=== PATIENT | male | born 1950 | race Caucasian/White ===

== ENCOUNTER 2023-05-08 08:08 | Outpatient (CLI) | payer MEDICARE, OTHER, SELFPAY ==
--- NOTE | 2023-05-08 08:30 | ECG_ITS ---
Measurements Intervals [place] Rate: 78 P: 31 MS: 172 QRS: 8 QRSD: 97 T: 35 QT: 366 QTc: 417 Interpretive Statements SINUS RHYTHM WITH SINUS ARRHYTHMIA BORDERLINE R WAVE PROGRESSION, ANTERIOR LEADS NONSPECIFIC T-WAVE ABNORMALITY- HIGH LATERAL LEADS BORDERLINE ECG NO PREVIOUS ECG AVAILABLE FOR COMPARISON Electronically Signed On 05-08-2023 8:48:59 TABLEAU REPORT DEVELOPER by Manav Tuttle D.O.
[2023-05-08 08:45] LABS: Hematocrit 45.4 % (42.0-52.0); Hemoglobin 15.2 g/dL (14.0-18.0); Mean Corpuscular HGB Conc 33.5 g/dl (32-36); Mean Corpuscular Hemoglobin 27.3 pg (26-34); Mean Corpuscular Volume 81.5 fl (80-100); Mean Platelet Volume 9.6 fl (7.4-10.4); Platelet Count Result 216 k/mm3 (150-375); Red Blood Count 5.57 M/mm3 (4.6-6.20); Red Cell Distribution Width 13.1 % (11.5-14.5); White Blood Count 8.8 K/mm3 (4.5-10.0)
[2023-05-08 08:46] LABS: Appearance Urine Clear (Clear); Bilirubin Urine Negative (Negative); Blood Urine Negative (Negative); Color Urine Yellow (Yellow); Glucose Urine UA Negative (Negative); Ketones Urine Negative (Negative); Leukocyte Esterase Ur Negative LEU/UL (Negative); Nitrate Urine Negative (Negative); Protein Urine Negative (Negative); Specific Grav Ur 1.009 (1.001-1.035); pH Urine 6.5 (5.0-9.0)
[2023-05-08 08:50] LABS: Add Urine Microscopic? NO
[2023-05-08 08:55] LABS: Anion Gap 14 mmol/L (8-16); Blood Urea Nitrogen 14 mg/dL (9-20); Calcium 9.9 mg/dL (8.4-10.2); Carbon Dioxide 27 mmol/L (22-30); Chloride 98 mmol/L (98-107); Estimated Glomerular Filt Rate > 60; Glucose 151 mg/dL (65-110); Potassium 3.8 mmol/L (3.4-5.0); Sodium 139 mmol/L (137-145)
[2023-05-08 08:56] LABS: INR 0.9
[2023-05-08 08:57] LABS: Partial Thromboplastin Time 25.1 SECONDS (22.3-36.8)
[2023-05-08 09:13] LABS: Hemoglobin A1C 5.9 % (<5.7)
== END 2023-05-08 08:09 | disposition home or self-care (01) ==
LOC: ANHSURGERY 08:15
PROVIDERS: PCP Physician Assistant; Visit Provider Neurological Surgery
DX: M48.062 Spinal stenosis, lumbar region with neurogenic claudication (principal); E11.9 Type 2 diabetes mellitus without complications; F17.210 Nicotine dependence, cigarettes, uncomplicated; Z01.818 Encounter for other preprocedural examination; R94.31 Abnormal electrocardiogram [ECG] [EKG]
CPT/HCPCS: 36415; 80048; 81003; 83036; 85027; 85610; 85730; 93005

== ENCOUNTER 2023-05-09 00:09 | Day surgery (SDC) | payer MEDICARE, OTHER, SELFPAY ==
[2023-05-04 15:05] VITALS: BMI 29.9
--- NOTE | 2023-05-04 15:06 | PC.NURSE ---
Report to the Outpatient Waiting Room, entrance under the green pavilion located off [facility], at time _0630_ on date _[id number]_. Planned Procedure Time: _0830_. Time changes happen often and if your time is changed the preop area will call you the afternoon before. - You and your visitor will be asked to self-screen and do not enter if you have any COVID symptoms. - A mask is optional within the hospital at this time. Patients may have clear liquids (water, carbonated beverages, clear teas, apple juice) until 3 hours prior to surgery with a maximum of 20 ounces. - No food from midnight until time of surgery Take the following medications with a SIP of water the morning of surgery: ____Amlodipine DO NOT STOP ANY OF YOUR OTHER PRESCRIPTION MEDICATIONS PRIOR TO SURGERY ?EXCEPT THE FOLLOWING Medications to discontinue per physician Please call Dr Johnson's office and ask about Aspirin and Meloxicam if need held prior to surgery. Date to take last dose Please no make-up, nail danish, hairspray, perfume, deodorant, or body powder the day of surgery. No jewelry (including any body piercings) or valuables the day of surgery, leave them at home. Please take a shower or bath the night before, or the morning of, surgery with an antibacterial soap. Wear comfortable, loose fitting clothing. - Jewelry must be removed prior to entering the operating room. Rings and piercings that are not removed may be cut off. - The hospital will not accept responsibility for valuables. - Please leave all valuables, including medications, at home the day of surgery. If you are going home after surgery, a licensed lifter/driver must drive you home. - NO public transportation without another adult if you receive anesthesia. - We recommend that an adult stay with you for 24 hours following discharge. - We also recommend that you do not drive, make important decision, drink alcoholic beverages, or take any drugs that were not prescribed by your health care provider for at least 24 hours after your discharge time. Follow any additional instructions given to you from your surgeon. If you or anyone in your household have experienced Covid symptoms in the past week, please notify your surgeon or the nurse liaison at the phone number below for possible testing. Telephone instructions given to __David__and asked if any additional questions and then verbalized understanding. Patient advised to call surgeon office or pre surgery nurse liaison [phone] if any additional questions.
[2023-05-09] VITALS (12 sets, daily range): BP systolic 92–139; BP diastolic 59–73; PULSE 59–110; RESP 12–20; TEMP 36.1–36.6; O2SAT 94–100
--- NOTE | ~2023-05-09 | XR_ITS ---
EXAMINATION: XR fluoroscopy no charge DATE: 05/09/2023 15:04 INDICATION: Lumbar laminectomy. TECHNIQUE: A single intraoperative lateral fluoroscopic view of the lumbar spine was obtained. I was not present. Fluoroscopy exposure time was 1 second. COMPARISON: None. FINDINGS: There is moderate lumbar spondylosis. An instrument overlies the posterior elements at L3-L 4. IMPRESSION: 1. Moderate lumbar spondylosis. Reviewed, dictated and finalized at location A. RIZED SQUAD CAPTAIN
[2023-05-09] MEDS: LACTATED RINGERS 1,000 ML 30 ML IV CONT ×2 (06:51→10:34)
[2023-05-09 07:01] LABS: Glucose Point of Care 155 mg/dl (65-105)
--- NOTE | 2023-05-09 07:57 | P.PNAN_ITS ---
Anes - Initial Pre Proc Eval Procedure: Operation Date: 05/09/23 08:30 Proposed Procedures p Left L3-4 Lumbar Laminectomy - Kurt Paige MD Date/Time: 05/09/23 07:57 Surgeon: Kurt Paige MD Pre Op Diagnosis: L3-4 stenosis Patient Data Age: 72 Gender: M Height: 1.8 m Weight: 94.8 kg Last Vital Signs Temp 97.9 F 05/09/23 06:35 Pulse 84 05/09/23 06:35 Resp 18 05/09/23 06:35 BP 139/70 05/09/23 06:35 Pulse Ox 96 05/09/23 06:35 O2 Del Method Room Air 05/09/23 06:35 Allergies Allergy/AdvReac Type Severity Reaction Status Date / Time codeine Allergy Severe Altered Verified 05/09/23 07:40 Mental Status tramadol Allergy Severe Altered Verified 05/09/23 07:40 Mental Status Home Medications Medication Instructions Recorded Confirmed Type amlodipine 5 mg tablet 5 mg PO DAILY 12/12/22 05/09/23 History aspirin 81 mg tablet,delayed 81 mg PO DAILY 12/12/22 05/09/23 History release (Ryan Low Dose Aspirin) atorvastatin 80 mg tablet 80 mg PO DAILY 12/12/22 05/09/23 History doxazosin 2 mg tablet 2 mg PO DAILY 12/12/22 05/09/23 History ezetimibe 10 mg-rosuvastatin 10 mg 0.5 tablet PO DAILY 12/12/22 05/09/23 History tablet meloxicam 15 mg tablet 15 mg PO DAILY 12/12/22 05/09/23 History metformin 500 mg tablet 1,000 mg PO BID 12/12/22 05/09/23 History omeprazole 20 mg capsule,delayed 20 mg PO DAILY 12/12/22 05/09/23 History release valsartan 320 1 tablet PO DAILY 05/04/23 05/09/23 History mg-hydrochlorothiazide 25 mg tablet Laboratory Tests 05/09/23 06:48 POC Capillary Glucose 155 H mg/dl (65-105) Patient hx anesthesia problems: post op nausea/vomiting Family hx anesthesia problems: none Results Review: All pre-operative results and documents have been reviewed as part of the pre- operative evaluation. PMFSH Social History Social History Smoking packs per day: 1.5 Smoking cigarettes per day: 30.0 Years smoked: 40 Smoking pack-years: 60.00 Smoking status: Former smoker Tobacco type: cigarettes Smoking end date: 05/04/12 Alcohol intake: current Drinks per week: 2 Living arrangements: with family Spiritual care concerns: No Anes - Eval Final PreProcedure Day of Procedure 05/09/23 07:57 Patient weight: obese Heart: regular rate and rhythm Lungs: clear to auscultation Airway: Mallampati scale class II Neurological: alert and oriented Last oral intake: >/= 8 hours ASA classification: III Emergent: no Anesthetic plan: proceed Anesthesia type and monitoring: general ETT and standard monitoring Results Review: All pre-operative results and documents have been reviewed as part of the pre- operative evaluation. Informed Consent: The patient's anesthetic plan and its attendant risks and benefits were discussed with the patient/family/POA. Questions were solicited and answers provided to the satisfaction of the patient/family/POA.
--- NOTE | 2023-05-09 08:50 | PM.IMHP ---
H&P: HPI History of Present Illness Date/Time: 05/09/23 08:50 Chief Complaint: Back and leg pain, claudication Narrative: Sedrick is a 72-year-old gentleman with neurogenic claudication secondary to spinal stenosis who presents for laminectomy at L3-4. He has not changed appreciably since we last saw him. He is not having any bowel or bladder difficulty or other constitutional problems. He does not have specific muscle group weakness or dermatomal numbness. Review of Systems Review of Systems: Patient denies shortness of breath, cough, fever, chills, nausea, vomiting, weight loss, weight gain, chest pain, dysuria. His back and leg pain as above. His review of systems otherwise negative on 12 systems except as noted elsewhere. [facility] Social History Social History Smoking packs per day: 1.5 Smoking cigarettes per day: 30.0 Years smoked: 40 Smoking pack-years: 60.00 Smoking status: Former smoker Tobacco type: cigarettes Smoking end date: 05/04/12 Alcohol intake: current Drinks per week: 2 Living arrangements: with family Spiritual care concerns: No Meds Home Medications and Allergies Home Medications Medication Instructions Recorded Confirmed Type amlodipine 5 mg tablet 5 mg PO DAILY 12/12/22 05/09/23 History aspirin 81 mg tablet,delayed 81 mg PO DAILY 12/12/22 05/09/23 History release (Ryan Low Dose Aspirin) atorvastatin 80 mg tablet 80 mg PO DAILY 12/12/22 05/09/23 History doxazosin 2 mg tablet 2 mg PO DAILY 12/12/22 05/09/23 History ezetimibe 10 mg-rosuvastatin 10 mg 0.5 tablet PO DAILY 12/12/22 05/09/23 History tablet meloxicam 15 mg tablet 15 mg PO DAILY 12/12/22 05/09/23 History metformin 500 mg tablet 1,000 mg PO BID 12/12/22 05/09/23 History omeprazole 20 mg capsule,delayed 20 mg PO DAILY 12/12/22 05/09/23 History release valsartan 320 1 tablet PO DAILY 05/04/23 05/09/23 History mg-hydrochlorothiazide 25 mg tablet Allergies Allergy/AdvReac Type Severity Reaction Status Date / Time codeine Allergy Severe Altered Verified 05/09/23 07:40 Mental Status tramadol Allergy Severe Altered Verified 05/09/23 07:40 Mental Status Vital Signs Vital Signs - 24 hr 05/09/23 06:35 Temperature 97.9 F Pulse Rate 84 Respiratory Rate 18 Blood Pressure 139/70 Pulse Oximetry 96 Oxygen Delivery Room Air Exam Narrative: Strength is 5/5 in all muscle groups of the bilateral lower extremities. Sensation is intact to light touch throughout the lower extremities. Breathing is nonlabored Regular rate and rhythm Assessment and Plan Assessment and plan (1) Lumbar stenosis with neurogenic claudication: Code(s): M48.062 - Spinal stenosis, lumbar region with neurogenic claudication Status: Acute Assessment and Plan: Sedrick is a 72-year-old gentleman with neurogenic claudication secondary to spinal stenosis who presents for L3-4 laminectomy. I described to him again that operation, its risks, potential benefits, the operative and postoperative course in detail and answered all his questions personally. He indicates understanding and elects to proceed with that operation.
--- NOTE | 2023-05-09 08:54 | WPDHPUPDATE1 ---
History and Physical Update Update Date/Time: 05/09/23 08:54 History and Physical has been reviewed, including an updated exam of the patient. There are NO changes in the patient's condition. Risks, benefits, and alternatives have been discussed and questions answered. Patient agrees to proceed with procedure.
--- NOTE | 2023-05-09 08:55 | WPDHPUPDATE1 ---
History and Physical Update Update Date/Time: 05/09/23 08:55 History and Physical has been reviewed, including an updated exam of the patient. There are NO changes in the patient's condition. Risks, benefits, and alternatives have been discussed and questions answered. Patient agrees to proceed with procedure.
[2023-05-09] MEDS: ceFAZolin 2 GM/D5W 50 ML 2 GM/50 ML BAG IVPB (08:57)
[2023-05-09] MEDS: LIDO 1%/EPINEPHRINE 1:100,000 50 ML VIAL 10 ML INFILTRATE (09:40)
[2023-05-09 10:46] LABS: Glucose Point of Care 208 mg/dl (65-105)
[2023-05-09] MEDS: fentaNYL CITRATE INJ (*CRX) 100 MCG/2 ML VIAL 25 MCG IV PUSH (10:54)
--- NOTE | 2023-05-09 11:24 | SUR.PHASEI ---
1124- Call to Dr. Slade patient's BG [address] Slade no further orders- patient takes oral metformin.
--- NOTE | 2023-05-09 12:28 | ADMGEN ---
This patient, Sedrick Pichardo, was admitted to Medical Room 250-01. Patient/family oriented to hospital policies and general routines including ID bracelet, bed and alarms, visiting hours, pain management, procedures, bathroom and other care routines, personal items, smoking policy, room service/diet, and visiting hours. Information on how to activate the Rapid Response Team has been discussed. Patient/Family are encouraged to report perceived risks to care and to ask questions if they do not understand what they are told or what they should do.
[2023-05-09] MEDS: ceFAZolin 1 GM/NS 50 ML 1 GM/50 ML BAG IVPB (14:36)
[2023-05-09] MEDS: KCL 20 MEQ/D5/0.45% SOD CHL 1,000 ML 100 ML IV CONT (14:36)
--- NOTE | 2023-05-09 17:49 | W.PM.PROC2 ---
Procedure Note - Detailed Date of Procedure 05/09/23 Pre-op Diagnosis L3-4 stenosis Post-op Diagnosis Same Procedure Performed L3-4 laminectomy Surgeon Kurt Paige MD Anesthesia General Description of Procedure patient was brought to the operating room in the supine position, was sedated, intubated and placed under general anesthesia in routine fashion. He was then turned to the prone position on a Delano frame. There operation on his back was examined, marked for incision, prepped and draped in routine sterile fashion. Incision was marked over the L3 and L4 spinous processes in the midline. This area was injected with 0.5% lidocaine with 1 to [id number] epinephrine. Intravenous antibiotics given prior to incision. Incision was made with a 10 blade scalpel down to the lumbar dorsal fascia. A subperiosteal dissection of the muscle soft tissue awake was spinous process and lamina at L3-4 was performed with a subperiosteal elevator and Bovie cautery. A verifying x-rays obtained to verify the level of operation. The spinous processes remove the coarsely rongeur. Midas Reynold drill within a corn bit was used to Um thin the lamina in the midline to the soft contents of the canal were encountered. Curved curettes used to define a plane with the dura and Kerrison punches were used to remove ligament and bone in the midline until the dura was exposed. In the lateral epidural space curved curette was used to define a plane with dura and Kerrison punches were used to remove additional bone and ligament starting inferiorly and working superiorly. This was done until a dental instrument could be placed in the lateral epidural space to confirm lack of compression. The wound was then copiously irrigated with bacitracin irrigation all bleeding stopped with bipolar and Bovie cautery and Gelfoam thrombin powder. The wound was then closed in layered fashion over a medium him a back drain left in the sub fascial position. After the inferior right of the incision. Two 0 Vicryl interrupted sutures were placed in the lumbar dorsal fascia and scarf is layer. Three 0 Vicryl buried interrupted sutures were placed in the dermis and the skin was closed with a running 4 0 Monocryl subcuticular stitch and dressed with Dermabond. The patient was allowed to wake up in the operating room and was taken to the recovery room in stable condition. There were no immediate complications of this operation. All counts were reported correct in the case. Blood loss was 100 cc. The patient is neurologically at his baseline postoperatively. CPT codes: 26843, 86027
== END 2023-05-09 18:10 | disposition home or self-care (01) ==
LOC: ANHSURGERY 06:23 → ANH2MED 12:00
PROVIDERS: PCP Physician Assistant; Visit Provider Neurological Surgery
PROC: (CPT 63005; principal; 2023-05-09 08:30)
DX: M48.062 Spinal stenosis, lumbar region with neurogenic claudication (principal); Z79.82 Long term (current) use of aspirin; Z79.84 Long term (current) use of oral hypoglycemic drugs; Z87.891 Personal history of nicotine dependence; E66.9 Obesity, unspecified; Z68.29 Body mass index [BMI] 29.0-29.9, adult
CPT/HCPCS: 63047; 82948; 97161; 97165; 97530; 97535; 99199; J0690; J1100; J1170; J2250; J2371; J2405; J2704; J3010; J3480; J7120

== ENCOUNTER 2025-02-25 07:15 | Outpatient (CLI) | payer MEDICARE, OTHER, SELFPAY ==
--- NOTE | ~2025-02-25 | XR_ITS ---
XR lumbar spine 2-3V 02/25/2025 07:37 Indication: Wedge compression fracture of lumbar spine Procedure: 2 views lumbar spine Comparison: No prior studies for comparison. Findings: There is acute superior endplate compression fracture of L1 with approximately 10% loss of vertebral body height. There is significant disc narrowing at L2-3 through L4-5. There is advanced multilevel facet hypertrophy. No evidence for spondylolisthesis. There is atherosclerosis of the aorta. Pedicles intact. Sacral foramen are symmetric. Impression: 1: Acute superior endplate compression fracture of L1 with approximately 10% loss of vertebral body height. 2: Severe lumbar spondylosis. Reviewed, dictated and finalized at location O. Impression: 1: Acute superior endplate compression fracture of L1 with approximately 10% lo ss of vertebral body height. 2: Severe lumbar spondylosis.
--- NOTE | ~2025-02-25 | CT_ITS ---
EXAMINATION: CT lumbar spine wo con DATE: 03/03/2025 17:01 CDT INDICATION: Lumbar injury 01/17/2025. Wedge compression fracture TECHNIQUE: Computed tomography (CT) of the lumbar spine was performed without intravenous contrast. The dose-length product was 790.45 mGy-cm. COMPARISON: None FINDINGS: Bones appear osteopenic which lowers sensitivity of this study. Bony irregularity of the superior endplate of the L1 vertebral body with 25% vertebral body height loss. The finding is favored to represent a compression fracture of indeterminate age. Correlate for point tenderness. No other possible compression fracture in the lumbar spine. Severe intervertebral disc space narrowing at these L4-L5 level. Moderate intervertebral disc space narrowing at the L2-L3 and L3-L4 levels. There is straightening of the normal lumbar lordosis. There is a 1.5 cm left adrenal adenoma. Indeterminant 2.2 cm left adrenal nodule. Indeterminant 2.4 cm right adrenal nodule. At the L2-L3 level, there is a small broad-based disc bulge with degenerative change in the facet joints and hypertrophy of the ligamentum flavum causing yume-[id number]-cgrasuds narrowing of the spinal canal and mild to moderate narrowing of the bilateral neural foramen. At the L3-L4 level, there is a moderate-sized posterior disc osteophyte complex with degenerative change in the facet joints causing moderate narrowing of the spinal canal. There is a laminectomy at the L3 level. Moderate narrowing of the left neural foramen and moderate to severe narrowing of the right neural foramen. At the L4-5 level, there is a small broad-based disc bulge with degenerative change in the facet joints and hypertrophy of the ligamentum flavum causing moderate narrowing of the spinal canal. Mild to moderate narrowing of the bilateral neural foramen. At the L5-S1 level, there is a small posterior central disc protrusion. Minimal narrowing of the spinal canal. Degenerative change in the facet joints. Mild narrowing of the bilateral neural foramen. IMPRESSION: 1. Bony irregularity of the superior endplate of the L1 vertebral body with 25% vertebral body height loss. The finding is favored to represent a compression fracture of indeterminate age. Correlate for point tenderness. No other possible compression fracture in the lumbar spine. If continued concern, consider an MRI of the lumbar spine for further assessment. 2. Multilevel discogenic and degenerative change in the lumbar spine as detailed above most prominent at the L3-L4 level. 3. There is straightening of the normal lumbar lordosis 4. Indeterminate bilateral adrenal nodules, the largest measures 2.4 cm in the right adrenal gland. An adrenal mass CT or MRI is recommended for further assessment. Reviewed, dictated and finalized at location Q. IMPRESSION: 1. Bony irregularity of the superior endplate of the L1 vertebral body with 25% vertebral body height loss. The finding is favored to represent a compression fracture of indeterminate age. Correlate for point tenderness. No other possibl e compression fracture in the lumbar spine. If continued concern, consider an M RI of the lumbar spine for further assessment. 2. Multilevel discogenic and degenerative change in the lumbar spine as detaile d above most prominent at the L3-L4 level. 3. There is straightening of the normal lumbar lordosis 4. Indeterminate bilateral adrenal nodules, the largest measures 2.4 cm in the right adrenal gland. An adrenal mass CT or MRI is recommended for further asses sment.
== END 2025-02-25 07:16 | disposition home or self-care (01) ==
PROVIDERS: PCP Physician Assistant; Visit Provider Nurse Practitioner Adult Health
DX: S32.000A Wedge compression fracture of unspecified lumbar vertebra, initial encounter for closed fracture (principal); M48.062 Spinal stenosis, lumbar region with neurogenic claudication; X58.XXXA Exposure to other specified factors, initial encounter; M47.896 Other spondylosis, lumbar region; D35.01 Benign neoplasm of right adrenal gland; D35.02 Benign neoplasm of left adrenal gland
CPT/HCPCS: 72100; 72131

== ENCOUNTER 2025-04-09 09:29 | Outpatient (CLI) | payer MEDICARE, OTHER, SELFPAY ==
--- NOTE | ~2025-04-09 | XR_ITS ---
XR lumbar spine 2-3V Indication: S32.000A - Wedge compression fracture of unspecified lumb... Comparison: None Findings: Moderate loss of vertebral height throughout. No fracture or subluxation. There is a remote superior endplate fracture of L1 with loss of height 10%. Severe loss of disc height L3-4, L4-5 and L5-S1. Soft tissues unremarkable Impression: No acute abnormality. Reviewed, dictated and finalized at location P. Impression: No acute abnormality.
--- OUTSIDE RECORDS SUMMARY | 2025-04-09 10:50 | XMS_ITS | Encounter Summary ---
Author Organization [facility] Address [address] [place] [address] Phone Care Team Providers Care Wood Tile Installation Helper Name Role Phone Lavelle Calderón MD Primary Care Provi victor manuel Ismael Evans Primary Care Provider Kurt Paige MD Unavailable [phone] Teddy Dumont MD Unavailable [phone] Narciso Bill DPM Unavailable [phone] Narciso Bill DPM Unavailable Encounter Details Date Type Department Care Team (Late st Contact Info) Description 09/20/2017 Orders Only [facility] ProviderKristina MD [address] [place] [address] Social History Tobacco Use Types Packs/Day Years Used Date Smoking Tobacco: Former Smokeless Tobacco: Former Comments:Smoking History Pac ks/day: 1.5 Packs Alcohol Use Standard Drinks/Week Comments Yes 0 (1 standard drink = 0.6 oz pur e alcohol) Sex and Gender Information Value Date Recorded Sex Assigned at Not on file 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 us Historical Provider LAB BLOOD ORDERABLES Adrianna l Result documented in this encounter Visit Diagnoses Not on filedocumented in this encounter Care Teams Wood Tile Installation Helper Relationship Specialty Start Date End Date Lavelle Calderón MD PCP - General 09/23/16 03/16/22 Ismael Evans PA [address] [place] [address] [place] [address] PCP - General Internal Medicine 03/17/22 Kurt Paige MD [address] [place] [address] [place] [address] Consulting Physician Neurosurgery 04/18/23 01/07/25 Teddy Dumont MD [address] [place] [id number] Referring Physician Pain Management 03/12/24 01/07/25 Narciso Bill DPM [address] [place] [address] Consulting Physician Foot and Ankle Surg 04/25/2401/23 Narciso Bill DPM [address] [facility] [place] [address] Consulting Physician Foot and Ankle Surg 01/24/25 [facility] 04/25/24 documented as of this encounter
--- OUTSIDE RECORDS SUMMARY | 2025-04-09 10:51 | XMS_ITS | Clinical Summary ---
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 Name Role Phone Lavelle Calderón MD Primary Care Provider Unavaila ble Social History Tobacco Use Types Packs/Day Years Used Date Smoking Tobacco: Never Assessed Sex and Gender Information Value Date Recorded Sex Assigned at Not on file Legal Sex Male 12:33 AM CDT Gender Identity Not on file Sexual Orientation Not on file Plan of Treatment Health Maintenance Due Date Last Done Comments Hepatitis C Virus (HCV) Screening 1950 Cologuard 1994 Colonoscopy 1994 Colorectal Cancer Screening 1994 Immunochemical Fecal Occult Blood 1994 Medicare Initial AWV [id number] 09/25/2015 Respiratory Syncytial Virus (RSV) Immunization (Adult) (1 - 1-dose 75+ series) 2024 Influenza Immunization (#1) 02/24/202505/26, 02/23/2020, 04/18/2019, Additional history exists SARS-COV-2 Immunization ( season) 2025 01/12/2021, 12/22/2020 DTaP/Tdap/Td Immunization Discontinued 02/25/2009 TdaP Immunization Completed 02/25/2009 Pneumococcal Immunization (50+ years) Completed 12/04/2018, 04/27/2015 Zoster Immunization Completed 06/12/2020, 05/29/2020, 02/23/2020, Additional history exists Hepatitis B Immunization Aged Out No longer eligible based on patient's age to complete this topic Human Papillomavirus (HPV) Immunization Aged Out No longer eligible based on patient's age to complete this topic Meningococcal Immunization (ACWY) Aged Out No longer eligible based on patient's age to complete this topic Rotavirus Immunization Aged Out No lo nger eligible based on patient's age to complete this topic Insurance MEDICARE Care Teams Machine Applicator Cementer Relationship Specialty Start Date End Date Lavelle Calderón MD [address] [place] [address] DR TORRES [address] [place] [id number] PCP - General Internal Medicine 06/23/21
--- OUTSIDE RECORDS SUMMARY | 2025-04-09 10:51 | XMS_ITS | Clinical Summary ---
Author Organization [facility] Address [address] [place] [address] Care Team Providers Care Supervisor Inventory Merchandising Name Role Phone Ismael Evans Primary Care Provider Narciso Bill DPM Unavailable [phone] Allergies Active Allergy Reactions Criticality Noted Date Comments Codeine Lisinopril Cough Reaction: Cough, Tramadol Other (See comments) Reaction: felt funny, Medications aspirin (ASPIR-81) 81 mg tablet Take one by mouth one time per day 0 0 8 Active metFORMIN (GLUCOPHAGE) 500 mg tablet TAKE 2 TABLETS BY MOUTH TWICE A DAY WITH FOOD 360 tablet 3 4 Active cyanocobalamin (Vitamin B-12) 500 mcg tabletIndicatio ns:Prevention of Vitamin B12 Deficiency Take 1 tablet (500 mcg total) by mouth daily Active ezetimibe (ZETIA) 10 mg tablet TAKE 1/2 TABLET BY MOUTH EVERY DAY 45 tablet 3 4 Active atorvastatin (LIPITOR) 80 mg tablet TAKE 1 TABLET BY MOUTH EVERY DAY 90 tablet 3 5 Active doxazosin (CARDURA) 2 mg tablet TAKE 1 TABLET BY MOUTH AT BEDTIME 100 tablet 1 5 Active valsartan-hydro chlorothiazide (DIOVAN-HCT) 320-25 mg per tablet TAKE 1 TABLET BY MOUTH EVERY DAY 100 tablet 1 5 Active amLODIPine (NORVASC) 5 mg tablet TAKE 1 TABLET (5 MG TOTAL) BY MOUTH DAILY. 100 tablet 1 5 01/23/20 26 Active meloxicam (MOBIC) 15 mg tablet TAKE 1 TABLET (15 MG TOTAL) BY MOUTH DAILY. 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/2025 Assessment & Plan (03/14/2025 8:02 AM CDT): 50 ounces of caffeine free and soda free fluid daily Pepcid (famotidine) 40 mg at bedtime Blood allergy testing Follow up in 3 months for recheck consider nonallergic treatment if no improvement Laryngopharyngeal reflux discussed and Handout provided Non-seasonal allergic rhinitis due to pollen Assessment & Plan (03/14/2025 8:03 AM CDT): 50 ounces of caffeine free and soda free fluid daily Pepcid (famotidine) 40 mg at bedtime Blood allergy testing Follow up in 3 months for recheck consider nonallergic treatment if no improvement Class 1 obesity due to exces s calories with serious comorbidity and body mass index (BMI) of 30.0 to 30.9 in adult 02/11/2025 TIA (transient ischemic attack) 03/12/2024 Cerebral microvascular disease 03/12/2024 Class 1 obesity due to exces s calories with serious comorbidity and body mass index (BMI) of 30.0 to 30.9 in adult 10/12/2021 Esophageal dysphagia 10/12/2021 Assessment & Plan (10/12/2021 8:51 AM CDT): Sounds suggestive of eophageal dysmotility referral to gi and egd to confirm At low risk for fall 02/05/2021 Assessment & Plan (02/05/2021 12:26 PM CDT): Low fall risk Lumbar facet joint syndrome 06/23/2020 RLS (restless legs syndrome) 11/25/2019 Assessment & Plan (11/25/2019 9:31 AM CDT): Night time feels need dto move legvs and can see durin g day and better to movel salk trial requip at night with 1 and after 1-2 wks a 2nfd and eventual 3rd if need re eval in 4-6 wks and adjsut Medicare annual wellness visit, subsequent 04/18 Assessment & Plan (04/25/2024 7:00 AM CDT): Discussed community resources and any need for referrals; will refer to services and programs to improve social engagement if indicated, as above. Reviewed social activities and engagement. Health risk assessment reviewed. Providers and care team suppliers up-to-date. Age-appropriate Medicare preventive services check list reviewed. Discussed physical activity. We reviewed home and community safety including driving. Refer to Medicare questions about suicidality and life satisfaction. Assessment & Plan (03/16/2022 7:09 PM CDT): Discussed community resources and any need for referrals. Health risk assessment reviewed. Providers and care team suppliers up-to-date. Age-appropriate Medicare preventive services check list reviewed. Discussed physical activity. Assessment & Plan (02/05/2021 12:28 PM CDT): Low fallrisk depreosin screen neg cog screeen nl up to date on psa. Needs colon updated and referred for had flu and covid shots as well as p shot series. chingles shot sereies Assessment & Plan (04/18/2019 8:15 AM CDT): Check psa Chronic midline low back pain without sciatica 0 02/22/2019 Assessment & Plan (02/05/2021 12:24 PM CDT): Trial glucosame added and give it a month discussed core activty program to help and omega 3 in fish oil with intent to start after glucosamin trial and work to 2000mg + of omega 3 Assessment & Plan (09/07/2020 8:37 AM CDT): Chronic and 2 sets of 4 shots and not worked urged to f/u on added helps. DDD (degenerative disc disease), lumbar-L2-3 and L3-4 02/22/2019 Assessment & Plan (04/18/2019 8:14 AM CDT): Failed steroid shots x's 3. gettign added look for possible surg opotions. No referred pain soless likely to benefit wit surg. Discussed optiona to try nsaid's and monitor for benefits and downside. Neuroleptics trial options to consder as well. Wait for pain eval for added trias Recurrent major depressive disorder, in full rem ission 03/29/2018 Assessment & Plan (02/05/2021 12:25 PM CDT): Seems well controlled and cont meds and activty program Assessment & Plan (09/07/2020 8:40 AM CDT): Well cotnrolled and cont meds given chroncunderlying pain isues Assessment & Plan (11/25/2019 9:32 AM CDT): Still smiling and no changes Assessment & Plan (03/29/2018 8:31 AM CDT): meds seem to be working and needed a yr or more. Will stay on thru winter and then consider staying on or taper and eval. Given past hx I suggest that this hads been there in past and could of used and had trials of meds prior B12 deficiency 03/29/2018 Assessment & Plan (09/07/2020 8:39 AM CDT): Stay on and check on return Assessment & Plan (03/29/2018 8:35 AM CDT): sgtarted 500 and stay on and recheck onnov labs Hypertension associated with diabetes 06/05/2017 Assessment & Plan (09/03/2024 7:21 AM CDT): Recommend DASH diet, heart healthy lifestyle, exercise. Discussed the risks of hypertension. Assessment & Plan (04/25/2024 7:00 AM CDT): Recommend DASH diet, heart healthy lifestyle, exercise. Discussed the risks of hypertension. Assessment & Plan (03/28/2024 8:39 AM CDT): Recommend DASH diet, heart healthy lifestyle, exercise. Discussed the risks of hypertension. Assessment & Plan (03/12/2024 6:50 AM CDT): Recommend DASH diet, heart healthy lifestyle, exercise. Discussed the risks of hypertension. Assessment & Plan (01/24/2024 2:08 PM CDT): Recommend DASH diet, heart healthy lifestyle, exercise. Discussed the risks of hypertension. Assessment & Plan (12/20/2023 7:47 PM CDT): Recommend DASH diet, heart healthy lifestyle, exercise. Discussed the risks of hypertension. Assessment & Plan (08/22/2023 6:46 AM HYDRAULIC JACK OPERATOR): Recommend DASH diet, heart healthy lifestyle, exercise. Discussed the risks of hypertension. Assessment & Plan (04/18/2023 6:56 AM CDT): Recommend DASH diet, heart healthy lifestyle, exercise. Discussed the risks of hypertension. Assessment & Plan (12/15/2022 7:13 AM CDT): Recommend DASH diet, heart-healthy lifestyle, exercise. Discussed the risks of hypertension. Assessment & Plan (08/08/2022 8:58 PM HYDRAULIC JACK OPERATOR): Recommend DASH diet, heart-healthy lifestyle, exercise. Discussed the risks of hypertension. Assessment & Plan (03/16/2022 7:10 PM CDT): Recommend DASH diet, heart-healthy lifestyle, exercise. Discussed the risks of hypertension. Assessment & Plan (10/12/2021 8:52 AM CDT): Bp[ good and a1c back down to 6.2 and great. No med chanees Hypertension, Medical treament revolves around weight control, salt management, and meds when necessary. long as weight loss is necessary and you are able to drop weight we can cont to monitor the blood pressure and not add meds. Once the weight is not changing then it becomes nesessary to add meds to be able to reach the goal bp.Diabetes management or controll revolves around several core concepts : weight controll,controlling the intake of rapidly absorbed sugars(read simple carbs that get rapidly absorbed such as sweetened tea,sugared soda,fruit juices or portions of fruit over 1/2 cup at a time) as well at the need to increase the sugar burned up through an n increase in your baseline activity.Breads,potatotes(white,yellow,sweet are all the same),most cereals and noodles all breakdown to sugar rapidly. This rapid breakdown or absorption challenges the body into handling this surge of sugar. The more these factors are controlled the more the sugar will be controlled. Assessment & Plan (06/07/2021 8:11 AM HYDRAULIC JACK OPERATOR): Recommend DASH diet, heart healthy lifestyle, exercise. Discussed the risks of hypertension. Assessment & Plan (02/05/2021 12:25 PM CDT): bp good and a1c 6.4 great and onc meds and self checks meds working Hypertension, Medical treament revolves around weight control, salt management, and meds when necessary. long as weight loss is necessary and you are able to drop weight we can cont to monitor the blood pressure and not add meds. Once the weight is not changing then it becomes nesessary to add meds to be able to reach the goal bp.Diabetes management or controll revolves around several core concepts : weight controll,controlling the intake of rapidly absorbed sugars(read simple carbs that get rapidly absorbed such as sweetened tea,sugared soda,fruit juices or portions of fruit over 1/2 cup at a time) as well at the need to increase the sugar burned up through an n increase in your baseline activity.Breads,potatotes(white,yellow,sweet are all the same),most cereals and noodles all breakdown to sugar rapidly. This rapid breakdown or absorption challenges the body into handling this surge of sugar. The more these factors are controlled the more the sugar will be controlled. Assessment & Plan (09/07/2020 8:39 AM CDT): a1c at 6.3 and great controll and stay on meds as on. The bp tends to be a little high leave alone as qwil deal with chol meds now and then samantha at bp medsHypertension, Medical treament revolves around weight control, salt management, and meds when necessary. long as weight loss is necessary and you are able to drop weight we can cont to monitor the blood pressure and not add meds. Once the weight is not changing then it becomes nesessary to add meds to be able to reach the goal bp.Diabetes management or controll revolves around several core concepts : weight controll,controlling the intake of rapidly absorbed sugars(read simple carbs that get rapidly absorbed such as sweetened tea,sugared soda,fruit juices or portions of fruit over 1/2 cup at a time) as well at the need to increase the sugar burned up through an n increase in your baseline activity.Breads,potatotes(white,yellow,sweet are all the same),most cereals and noodles all breakdown to sugar rapidly. This rapid breakdown or absorption challenges the body into handling this surge of sugar. The more these factors are controlled the more the sugar will be controlled. Assessment & Plan (04/30/2020 8:12 PM HYDRAULIC JACK OPERATOR): Recommend DASH diet, heart-healthy lifestyle, exercise. Discussed the risks of hypertension. Assessment & Plan (11/25/2019 9:33 AM CDT): The bp good and no changs for now Hypertension, Medical treament revolves around weight control, salt management, and meds when necessary. long as weight loss is necessary and you are able to drop weight we can cont to monitor the blood pressure and not add meds. Once the weight is not changing then it becomes nesessary to add meds to be able to reach the goal bp. Assessment & Plan (08/19/2019 8:35 AM HYDRAULIC JACK OPERATOR): Recommend DASH diet, heart healthy lifestyle, exercise. Discussed the risks of hypertension. Assessment & Plan (05/21/2019 9:57 AM HYDRAULIC JACK OPERATOR): Recommend DASH diet, heart healthy lifestyle, exercise. Discussed the risks of hypertension. Assessment & Plan (04/18/2019 8:10 AM CDT): The bp good and no changs the a1c at 6.8 and controll acceptable watch bp given possible added meds for backHypertension, Medical treament revolves around weight control, salt management, and meds when necessary. long as weight loss is necessary and you are able to drop weight we can cont to monitor the blood pressure and not add meds. Once the weight is not changing then it becomes nesessary to add meds to be able to reach the goal bp.Diabetes management or controll revolves around several core concepts : weight controll,controlling the intake of rapidly absorbed sugars(read simple carbs that get rapidly absorbed such as sweetened tea,sugared soda,fruit juices or portions of fruit over 1/2 cup at a time) as well at the need to increase the sugar burned up through an n increase in your baseline activity.Breads,potatotes(white,yellow,sweet are all the same),most cereals and noodles all breakdown to sugar rapidly. This rapid breakdown or absorption challenges the body into handling this surge of sugar. The more these factors are controlled the more the sugar will be controlled. Assessment & Plan (12/04/2018 8:41 AM CDT): Recommend DASH diet, heart-healthy lifestyle, exercise. Discussed the risks of hypertension. Assessment & Plan (07/31/2018 8:01 AM HYDRAULIC JACK OPERATOR): Recommend DASH diet, heart-healthy lifestyle, exercise. Discussed the risks of hypertension. Assessment & Plan (03/29/2018 8:35 AM CDT): bp good and check suagr on returnHypertension, Medical treament revolves around weight control, salt management, and meds when necessary. long as weight loss is necessary and you are able to drop weight we can cont to monitor the blood pressure and not add meds. Once the weight is not changing then it becomes nesessary to add meds to be able to reach the goal bp.Diabetes management or controll revolves around several core concepts : weight controll,controlling the intake of rapidly absorbed sugars(read simple carbs that get rapidly absorbed such as sweetened tea,sugared soda,fruit juices or portions of fruit over 1/2 cup at a time) as well at the need to increase the sugar burned up through an n increase in your baseline activity.Breads,potatotes(white,yellow,sweet are all the same),most cereals and noodles all breakdown to sugar rapidly. This rapid breakdown or absorption challenges the body into handling this surge of sugar. The more these factors are controlled the more the sugar will be controlled.. Assessment & Plan (10/04/2017 8:39 AM CDT): Recommend DASH diet, heart-healthy lifestyle, exercise. Discussed the risks of hypertension. Assessment & Plan (06/05/2017 8:17 AM HYDRAULIC JACK OPERATOR): bp good and no changes. The a1c at 6.3 and good controll but present. Check urin on return.Hypertension, Medical treament revolves around weight control, salt management, and meds when necessary. long as weight loss is necessary and you are able to drop weight we can cont to monitor the blood pressure and not add meds. Once the weight is not changing then it becomes nesessary to add meds to be able to reach the goal bp.Diabetes management or controll revolves around several core concepts : weight controll,controlling the intake of rapidly absorbed sugars(read simple carbs that get rapidly absorbed such as sweetened tea,sugared soda,fruit juices or portions of fruit over 1/2 cup at a time) as well at the need to increase the sugar burned up through an n increase in your baseline activity.Breads,potatotes(white,yellow,sweet are all the same),most cereals and noodles all breakdown to sugar rapidly. This rapid breakdown or absorption challenges the body into handling this surge of sugar. The more these factors are controlled the more the sugar will be controlled. Nocturia 06/05/2017 Assessment & Plan (03/29/2018 8:40 AM CDT): Check psa onreturn Assessment & Plan (06/05/2017 8:20 AM HYDRAULIC JACK OPERATOR): Check psa Type 2 diabetes mellitus with hyperlipidemia 06/2016 Assessment & Plan (09/03/2024 7:21 AM CDT): The patient was counseled on a heart-healthy, diabetic-friendly diet, as well as life-style modification. Education provided on the diagnosis and risks of the disease. We will continue to monitor routine labs. Additionally, the patient was counseled on routine diabetic eye exams, foot exams, and other preventive care. Assessment & Plan (04/25/2024 7:00 AM CDT): The patient was counseled on a heart-healthy, diabetic-friendly diet, as well as life-style modification. Education provided on the diagnosis and risks of the disease. We will continue to monitor routine labs. Additionally, the patient was counseled on routine diabetic eye exams, foot exams, and other preventive care. Assessment & Plan (03/28/2024 8:39 AM CDT): The patient was counseled on a heart-healthy, diabetic-friendly diet, as well as life-style modification. Education provided on the diagnosis and risks of the disease. We will continue to monitor routine labs. Additionally, the patient was counseled on routine diabetic eye exams, foot exams, and other preventive care. Assessment & Plan (03/12/2024 6:49 AM CDT): The patient was counseled on a heart-healthy, diabetic-friendly diet, as well as life-style modification. Education provided on the diagnosis and risks of the disease. We will continue to monitor routine labs. Additionally, the patient was counseled on routine diabetic eye exams, foot exams, and other preventive care. Assessment & Plan (01/24/2024 2:08 PM CDT): The patient was counseled on a heart-healthy, diabetic-friendly diet, as well as life-style modification. Education provided on the diagnosis and risks of the disease. We will continue to monitor routine labs. Additionally, the patient was counseled on routine diabetic eye exams, foot exams, and other preventive care. Assessment & Plan (12/20/2023 7:47 PM CDT): The patient was counseled on a heart-healthy, diabetic-friendly diet, as well as life-style modification. Education provided on the diagnosis and risks of the disease. We will continue to monitor routine labs. Additionally, the patient was counseled on routine diabetic eye exams, foot exams, and other preventive care. Assessment & Plan (08/22/2023 6:45 AM HYDRAULIC JACK OPERATOR): The patient was counseled on a heart-healthy, diabetic-friendly diet, as well as life-style modification. Education provided on the diagnosis and risks of the disease. We will continue to monitor routine labs. Additionally, the patient was counseled on routine diabetic eye exams, foot exams, and other preventive care. Assessment & Plan (04/18/2023 6:56 AM CDT): The patient was counseled on a heart-healthy, diabetic-friendly diet, as well as life-style modification. Education provided on the diagnosis and risks of the disease. We will continue to monitor routine labs. Additionally, the patient was counseled on routine diabetic eye exams, foot exams, and other preventive care. Assessment & Plan (12/15/2022 7:12 AM CDT): The patient was counseled on a heart-healthy, diabetic-friendly diet, as well as life-style modification. Education provided on the diagnosis and risks of the disease. We will continue to monitor routine labs. Additionally, the patient was counseled on routine diabetic eye exams, foot exams, and other preventive care. Assessment & Plan (08/08/2022 8:59 PM HYDRAULIC JACK OPERATOR): The patient was counseled on a heart-healthy, diabetic-friendly diet, as well as life-style modification. Education provided on the diagnosis and risks of the disease. We will continue to monitor routine labs. Additionally, He was counseled on routine diabetic eye exams, foot exams, and other preventive care. Assessment & Plan (03/16/2022 7:11 PM CDT): The patient was counseled on a heart-healthy, diabetic-friendly diet, as well as life-style modification. Education provided on the diagnosis and risks of the disease. We will continue to monitor routine labs. Additionally, He was counseled on routine diabetic eye exams, foot exams, and other preventive care. Assessment & Plan (10/12/2021 8:54 AM CDT): ldl at 49 and great and keep same Your cholesterol in the form of ldl (bad) cholesterol,hdl(good) cholesterol and triglycerides are monitored. The triglycerides respond to reduction/controll of your simple carbs/sugars In such items as sugared soda/sweet tea along with fruit juices(containing natural sugar) even if no added sugar is added. LDL cholesterol is reduced with reducing daily intake of fats and mani. saturated fats. The monosaturated fats like olive oil are not harmful except in the calories they contained. Whole milk cheese needs to be remembered along with whole milk products And limited. Assessment & Plan (06/07/2021 8:12 AM HYDRAULIC JACK OPERATOR): The patient was counseled on a heart-healthy, diabetic-friendly diet, as well as life-style modification. Education provided on the diagnosis and risks of the disease. We will continue to monitor routine labs. Additionally, the patient was counseled on routine diabetic eye exams, foot exams, and other preventive care. Assessment & Plan (02/05/2021 12:26 PM CDT): Your cholesterol in the form of ldl (bad) cholesterol,hdl(good) cholesterol and triglycerides are monitored. The triglycerides respond to reduction/controll of your simple carbs/sugars In such items as sugared soda/sweet tea along with fruit juices(containing natural sugar) even if no added sugar is added. LDL cholesterol is reduced with reducing daily intake of fats and mani. saturated fats. The monosaturated fats like olive oil are not harmful except in the calories they contained. Whole milk cheese needs to be remembered along with whole milk products And limited.Keep ldl a s tight as tolerable and 60 or less ideal at 49 now and keep here and no emds changs Assessment & Plan (09/07/2020 8:40 AM CDT): ldl at 76 and with ascvd risk 34 would like to see 60 or less and max'd on atorvastin and trial 1/2 of aetia that should drop him to 60 or less. Your cholesterol in the form of ldl (bad) cholesterol,hdl(good) cholesterol and triglycerides are monitored. The triglycerides respond to reduction/controll of your simple carbs/sugars In such items as sugared soda/sweet tea along with fruit juices(containing natural sugar) even if no added sugar is added. LDL cholesterol is reduced with reducing daily intake of fats and mani. saturated fats. The monosaturated fats like olive oil are not harmful except in the calories they contained. Whole milk cheese needs to be remembered along with whole milk products And limited. Assessment & Plan (04/30/2020 8:11 PM HYDRAULIC JACK OPERATOR): The patient was counseled on a heart-healthy, diabetic-friendly diet, as well as life-style modification. Education provided on the diagnosis and risks of the disease. We will continue to monitor routine labs. Additionally, He was counseled on routine diabetic eye exams, foot exams, and other preventive care. Assessment & Plan (11/25/2019 9:32 AM CDT): a1c at 6.3 and good contorll and ldl at 79 would like to see lower but not tile leg issue gets straighten. As option from sta t in Your cholesterol in the form of ldl (bad) cholesterol,hdl(good) cholesterol and triglycerides are monitored. The triglycerides respond to reduction/controll of your simple carbs/sugars In such items as sugared soda/sweet tea along with fruit juices(containing natural sugar) even if no added sugar is added. LDL cholesterol is reduced with reducing daily intake of fats and mani. saturated fats. The monosaturated fats like olive oil are not harmful except in the calories they contained. Whole milk cheese needs to be remembered along with whole milk products And limited.Diabetes management or controll revolves around several core concepts : weight controll,controlling the intake of rapidly absorbed sugars(read simple carbs that get rapidly absorbed such as sweetened tea,sugared soda,fruit juices or portions of fruit over 1/2 cup at a time) as well at the need to increase the sugar burned up through an n increase in your baseline activity.Breads,potatotes(white,yellow,sweet are all the same),most cereals and noodles all breakdown to sugar rapidly. This rapid breakdown or absorption challenges the body into handling this surge of sugar. The more these factors are controlled the more the sugar will be controlled. Assessment & Plan (08/19/2019 8:34 AM HYDRAULIC JACK OPERATOR): The patient was counseled on a heart-healthy, diabetic-friendly diet, as well as life-style modification. Education provided on the diagnosis and risks of the disease. We will continue to monitor routine labs. Additionally, the patient was counseled on routine diabetic eye exams, foot exams, and other preventive care. Assessment & Plan (04/18/2019 8:11 AM CDT): ldl at 78 go0od and want to keep here or less given other issue with added meds for back will hold off on chol changesYour cholesterol in the form of ldl (bad) cholesterol,hdl(good) cholesterol and triglycerides are monitored. The triglycerides respond to reduction/controll of your simple carbs/sugars In such items as sugared soda/sweet tea along with fruit juices(containing natural sugar) even if no added sugar is added. LDL cholesterol is reduced with reducing daily intake of fats and mani. saturated fats. The monosaturated fats like olive oil are not harmful except in the calories they contained. Whole milk cheese needs to be remembered along with whole milk products And limited. Assessment & Plan (12/04/2018 8:42 AM CDT): The patient was counseled on a heart-healthy, diabetic-friendly diet, as well as life-style modification. Education provided on the diagnosis and risks of the disease. We will continue to monitor routine labs. Additionally, He was counseled on routine diabetic eye exams, foot exams, and other preventive care. Assessment & Plan (07/31/2018 8:01 AM HYDRAULIC JACK OPERATOR): The patient was counseled on a heart-healthy, diabetic-friendly diet, as well as life-style modification. Education provided on the diagnosis and risks of the disease. We will continue to monitor routine labs. Additionally, He was counseled on routine diabetic eye exams, foot exams, and other preventive care. Assessment & Plan (03/29/2018 8:36 AM CDT): Cont meds and check lipids on rturnYour cholesterol in the form of ldl (bad) cholesterol,hdl(good) cholesterol and triglycerides are monitored. The triglycerides respond to reduction/controll of your simple carbs/sugars In such items as sugared soda/sweet tea along with fruit juices(containing natural sugar) even if no added sugar is added. LDL cholesterol is reduced with reducing daily intake of fats and mani. saturated fats. The monosaturated fats like olive oil are not harmful except in the calories they contained. Whole milk cheese needs to be remembered along with whole milk products And limited. Assessment & Plan (10/04/2017 8:39 AM CDT): The patient was counseled on a heart-healthy, diabetic-friendly diet, as well as life-style modification. Education provided on the diagnosis and risks of the disease. We will continue to monitor routine labs. Additionally, He was counseled on routine diabetic eye exams, foot exams, and other preventive care. Assessment & Plan (06/05/2017 8:18 AM HYDRAULIC JACK OPERATOR): ldl at 71 great and no aded meds. Cont as you areYour cholesterol in the form of ldl (bad) cholesterol,hdl(good) cholesterol and triglycerides are monitored. The triglycerides respond to reduction/controll of your simple carbs/sugars In such items as sugared soda/sweet tea along with fruit juices(containing natural sugar) even if no added sugar is added. LDL cholesterol is reduced with reducing daily intake of fats and mani. saturated fats. The monosaturated fats like olive oil are not harmful except in the calories they contained. Whole milk cheese needs to be remembered along with whole milk products And limited. Assessment & Plan (01/24/2017 8:37 AM CDT): a1c up to 6.4 and up from past 5.9 so work to drop again. Hold on med adjust unles can't drop furtherDiabetes management or controll revolves around several core concepts : weight controll,controlling the intake of rapidly absorbed sugars(read simple carbs that get rapidly absorbed such as sweetened tea,sugared soda,fruit juices or portions of fruit over 1/2 cup at a time) as well at the need to increase the sugar burned up through an n increase in your baseline activity.Breads,potatotes(white,yellow,sweet are all the same),most cereals and noodles all breakdown to sugar rapidly. This rapid breakdown or absorption challenges the body into handling this surge of sugar. The more these factors are controlled the more the sugar will be controlled. Obstructive sleep apnea syndrome 06/14/2013 Cluster headaches 05/02/2013 Pure hypercholesterolemia 05/02/2013 Assessment & Plan (09/03/2024 7:23 AM CDT): Counseled on heart healthy diet exercise Assessment & Plan (04/25/2024 7:00 AM CDT): Counseled on heart healthy diet exercise Assessment & Plan (03/28/2024 8:40 AM CDT): Counseled on heart healthy diet exercise Assessment & Plan (12/20/2023 7:47 PM CDT): Counseled on heart healthy diet, exercise. Episodic tension-type headache 05/02/2013 Snoring 05/02/2013 Osteoarthritis of knee 02/28/2013 Overview (09/28/2016): DJD (degenerative joint disease) of knee Resolved Problems Problem Noted Date Diagnosed Date Resolved Date Cough 03/29/2018 02/05/2021 Assessment & Plan (03/29/2018 8:33 AM CDT): Given drainage in last weeks and mow grass will sneeze this yr mani. Trial flonase for 1-2 wks and claritin and ssee if not gradually better ad Controlled . The new med would not be the source though and if not settled then samantha intoogther answers. BMI 29.0-29.9,adult 06/05/2017 10/13/19 Assessment & Plan (09/07/2020 8:40 AM CDT): Work to kep stable or dorp touch Assessment & Plan (04/18/2019 8:11 AM CDT): Work to keep f rom mery mckeong Assessment & Plan (03/29/2018 8:40 AM CDT): Being over weight is dealt with by restriction of you daily calories and increasing your calorie needs with increases in your work load/exercises or just increases in daily activity. There are different programs for weight loss and they all are felt to be relatively equally effective and you can make a choice as to what works for you. Assessment & Plan (06/05/2017 8:22 AM HYDRAULIC JACK OPERATOR): Being over weight is dealt with by restriction of you daily calories and increasing your calorie needs with increases in your work load/exercises or just increases in daily activity. There are different programs for weight loss and they all are felt to be relatively equally effective and you can make a choice as to what works for you. Acute non-recurrent pansinusitis 05/25/2017 06/05/2017 Assessment & Plan (05/25/2017 10:47 AM HYDRAULIC JACK OPERATOR): Humidification, fluids, and rest were recommended. Patient was instructed to take antibiotic as directed. Patient was encouraged to take antibiotic with food. I have also recommended daily probiotic, yogurt or capsule, while on the antibiotic. Patient was also given a Flonase nasal spray to use on an as-needed basis. Bilateral carotid artery disease (CMS/HCC) 01/24/2017 03/17/2022 Assessment & Plan (02/05/2021 12:24 PM CDT): Risk control tight and rescan In the future Assessment & Plan (11/25/2019 9:33 AM CDT): Tight risk contorll Assessment & Plan (12/04/2018 8:58 AM CDT): 2017 doppler showing no sig disease. Suggest [facility] screen Assessment & Plan (06/05/2017 8:19 AM HYDRAULIC JACK OPERATOR): Cont tight risk controll and rescan dvery 2 yrs. January 19 last and with routine scan no blockage over 40 or of significance. It is there but not at point to act on besides meds to stabilize. Recheck in 2 yrs. Assessment & Plan (01/24/2017 8:42 AM CDT): With prior proof of mild disease and current showing no SIGN disease these are not different but not reporting mild disease. Stay on asa 81. Multiple-type hyperlipidemia 12/24/2014 03/29/2018 Overview (09/29/2016): MIXED HYPERLIPIDEMIA Assessment & Plan (01/24/2017 8:39 AM CDT): ldl At 89 and at 60 or less will see reversal in some. Stay on asa 81 once a day and consider upint the atorvastin to max 80 Your cholesterol in the form of ldl (bad) cholesterol,hdl(good) cholesterol and triglycerides are monitored. The triglycerides respond to reduction/controll of your simple carbs/sugars In such items as sugared soda/sweet tea along with fruit juices(containing natural sugar) even if no added sugar is added. LDL cholesterol is reduced with reducing daily intake of fats and mani. saturated fats. The monosaturated fats like olive oil are not harmful except in the calories they contained. Whole milk cheese needs to be remembered along with whole milk products And limited. Chronic obstructive pulmonary disease 11/09/2013 12/21/2023 Overview (09/28/2016): CHR AIRWAY OBSTRUCT NEC Assessment & Plan (02/05/2021 12:24 PM CDT): decnies issue for now and reaosn to keep vaccines up to date Assessment & Plan (03/29/2018 8:36 AM CDT): If cough not better then cousinder evfal and rx. Acute cerebrovascular insufficiency 11/09/2013 01/24/2017 Overview (09/29/2016): AC CEREBROVASC INSUF NOS Depression 11/09/2013 04/18/2019 Overview (09/29/2016): DEPRESSIVE DISORDER NEC Abnormal glucose tolerance test (GTT) 11/09/2013 01/24/2017 Overview (09/30/2016): IMPAIRED ORAL GLUCSE SIMÓN Central sleep disordered breathing 06/14/2013 03/29/2018 Numbness 05/02/2013 03/29/2018 Overview (2017): Description: with neck flexion could be due to cervical myelopathy( ? C4-5 or C 5-6) Hypersomnia 05/02/2013 03/29/2018 Encounters Date Type Department Care Team Description 03/24/2025 Results Follow-Up [facility] - [address] [address] Carmencita Wilson, DO Allergen Nettle (weed) IgE, Allergen Bill's quarter (weed) IgE, Allergen Elm (tree) IgE, Additional followed-up results: 22 03/14/2025 8:10 AM CDT Lab [address] Non-seasonal allergic rhinitis due to pollen 03/14/2025 7:45 AM CDT Office Visit [facility] - [address] [place] [address] Carmencita Wilson, DO Laryngeal spasm (Primary Dx); Non-seasonal allergic rhinitis due to pollen 02/25/2025 Orders Only [facility] Health Information Management [address] [place] [phone] Ismael Evans PA 02/11/2025 10:00 AM CDT Office Visit [facility] at [address] [phone] Ismael Evans PA Laceration of left forearm, subsequent encounter (Primary Dx); Acute midline low back pain without sciatica; Fall from stationary vehicle, subsequent encounter; Class 1 obesity due to excess calories with serious comorbidity and body mass index (BMI) of 30.0 to 30.9 in adult; Other closed fracture of first lumbar vertebra with delayed healing, subsequent encounter 02/10/2025 Orders Only [facility] at [address] [phone] Ismael Evans PA Closed fracture of first lumbar vertebra, unspecified fracture morphology, initial encounter (HCC) (Primary Dx) 02/10/2025 Telephone [facility] at [address] [phone] Ismael Evans PA Medical Question/Miscellaneous 02/06/2025 7:51 AM CDT - 02/06/2025 11:59 PM CDT Hospital Encounter [facility] [address] [place] [address] Compression fracture of L1 vertebra, initial encounter (HCC); Low back pain, unspecified back pain laterality, unspecified chronicity, unspecified whether sciatica present Discharge Disposition: Discharge to home or self care 02/06/2025 Results Follow-Up [facility] at [address] [phone] Ismael Evans PA MRI Lumbar Spine WO Contrast 02/03/2025 Orders Only [facility] at [address] [phone] Ismael Evans PA 02/03/2025 Telephone [facility] at [address] [phone] Ismael Evans PA Symptom Based Call 01/24/2025 3:30 PM CDT Office Visit [facility] Medical [facility] Primary Care at [address] [place] [phone] Ismael Evans PA Acute midline low back pain without sciatica (Primary Dx); Fall from stationary vehicle, subsequent encounter; Class 1 obesity due to excess calories with serious comorbidity and body mass index (BMI) of 30.0 to 30.9 in adult; Closed compression fracture of body of L1 vertebra (HCC); Contusion of scalp, subsequent encounter; Laceration of left forearm, subsequent encounter; Hypertension associated with diabetes (HCC) 01/24/2025 Orders Only [facility] Primary Care at [address] [phone] Ismael Evans PA Compression fracture of L1 vertebra, initial encounter (HCC); Low back pain, unspecified back pain laterality, unspecified chronicity, unspecified whether sciatica present 01/17/2025 Orders Only [facility] Health Information Management [address] [place] [phone] Ismael Evans PA 01/08/2025 8:15 AM CDT Office Visit [facility] Primary Care at [address] [phone] Ismael Evans PA Type 2 diabetes mellitus with hyperlipidemia (HCC) (Primary Dx); Hypertension associated with diabetes (HCC); Pure hypercholesterolemia; B12 deficiency; Class 1 obesity with body mass index (BMI) of 30.0 to 30.9 in adult, unspecified obesity type, unspecified whether serious comorbidity present; Postnasal drip; Esophageal dysphagia 01/08/2025 Orders Only [facility] Primary Care at [address] [phone] Ismael Evans PA PND (post-nasal drip) (Primary Dx); Dysphagia, unspecified type from Last 3 Months Immunizations Immunization Administration Dates Next Due Influenza, Quad, Adjuvantate d, Intramuscular 02/23/2020 Influenza, Quadrivalent, Hig h Dose, Preservative Free, Intrr 04/18/2023,08/09/2022,06/07/2021 Influenza, Trivalent, High D ose, Split, Preservative Free, Intramuscular 03/12/2024,04/18/2019,03/29/2018,04/27 Influenza, Unspecified 03/12/2024(Deferr ed: Patient Refused),03/17/2022(Deferred: Patient Refused),08/19/2019(Deferred: Patient Refused),07/12/2019(Deferred: Patient Refused) Pfizer SARS-CoV-2 Monovalent Vaccination (12+ Yrs) PURPLE 01/12/2021,12/22/2020 Pneumococcal Conjugate PCV 13 04/27/2015 Pneumococcal Polysaccharide PPV23 12/04/2018 Tdap 01/17/2025,02/25/2009 ZOSTER LIVE 12/18/2013 ZOSTER Recombinant 06/12/2020,05/29/2020, 020 Surgical History Surgery Date Site/Laterality Comments OTHER SURGICAL HISTORY er hurt knee OTHER SURGICAL HISTORY fracture L great toe @ age 38: L great toe surgery x 3 OTHER SURGICAL HISTORY L wrist fracture @ age 20: ORIF L wrist KNEE ARTHROPLASTY Knee replacement LUMBAR PUNCTURE WO INJECTION , DIAGNOSTIC 06/04/2013 N/A COLONOSCOPY 01/25/2016 - 02/24/2016 COLONOSCOPY 06/07/2022 UPPER GASTROINTESTINAL ENDOSCOPY 06/07/2022 LAMINECTOMY 05/09/2023 UPPER GASTROINTESTINAL ENDOSCOPY 04/26/2024 Medical History Medical History Date Comments Hx Other Medical fracture L grea t toe @ age 38; Comments: [facility] 05/12/2015 - Hx Other Medical L wrist fractur e @ age 20; Comments: [facility] 05/12/2015 - Hypertension Diabetes mellitus Arthritis Low back pain Chronic pain disorder Dysphagia Type 2 diabetes mellitus PONV (postoperative nausea and vomiting) Family History Medical History Relation Name Comments Other Brother 2 Alive and well; Other Father ; Cause of : Other Sister 3 Alive and well; breast cancer diabetes [facility] 05/12/2015 -Sister Effie Other Sister 4 Alive and well; diabetes [facility] 05/12/2015 -Sister Audelia Relation Name Status Comments Brother 1 Alive Brother 2 Father (Age 37) Mother (Age 77) Sister 1 Alive Sister 2 Alive Sister 3 Sister 4 Social History Tobacco Use Types Packs/Day Years Used Date Smoking Tobacco: Former Smokeless Tobacco: Former Quit: 2011 Tobacco Cessation:Counseling Given: Not Answered Comments:Smoking History Packs/day: 1.5 Packs started smoking 1964 quit 2012 Alcohol Use Standard Drinks/Week Comments Yes 2 (1 standard drink = 0.6 oz pur e alcohol) PHQ-2 Answer Date Recorded PHQ-2 Total Score (If total score is 3 or more points, staff should administer the PHQ-9) 0 02/11/2025 AUDIT-C Answer Date Recorded Q1: How often do you have a drink containing alc ohol? 2-3 times a week 02/11/2025 Q2: How many drinks containi ng alcohol do you have on a typical day when you are drinking? 1 or 2 02/11/2025 Q3: How often do you have si x or more drinks on one occasion? Never 02/11/2025 Personal Safety Answer Date Recorded Have you ever been in or are you currently in a harmful physical or emotional relationship or is someone making you feel afraid or unsafe? Denies 04/26/2024 Sex and Gender Information Value Date Recorded Sex Assigned at Not on file Legal Sex Male 11:27 PM HYDRAULIC JACK OPERATOR Gender Identity Male 01/08/2020 10:26 AM CDT Sexual Orientation Straight 01/08/2020 10 :26 AM CDT Obstetrics History Last Filed Vital Signs Vital Sign Reading Time Taken Comments Blood Pressure 134/74 03/14/2025 7:39 AM CDT Pulse 79 03/14/2025 7:39 AM CDT Temperature 36.5 C (97.7 F) 02/11/2025 9:52 AM CDT Respiratory Rate 18 03/14/2025 7:39 AM CDT Oxygen Saturation 96% 03/14/2025 7:39 AM CDT Inhaled Oxygen Concentration - - Weight 95.3 kg (210 lb) 03/14/2025 7:39 AM CDT Height 177.8 cm (5' 10) 03/14/2025 7:39 AM CDT Body Mass Index 30.13 03/14/2025 7:39 AM CDT Plan of Treatment Health Maintenance Due Date Last Done Comments Abdominal Aortic Aneurysm (A AA) Screen 2014 Lung Cancer Screening 11/14/2024 05/18/2024 Covid-19 Vaccine (3 - 2024-2 6 season) 2025 01/12/2021, 12/22/2020 Influenza Vaccine (#1) 2025 , 04/18/2023, 08/09/2022, Additional history exists Well Visit 65+ 04/25/2025 04/25/2024, 03/27, 03/17/2022, Additional history exists Hemoglobin A1C 07/03/2025 12/31/2024, 03/0 10/2024, 05/01/2024, Additional history exists Albumin Creatinine Ratio, Urine 08/28/2025 08/28/2024, 12/12/2023, 08/08/2023, Additional history exists Lipid Panel 08/28/2025 08/28/2024, 11/24, 04/05/2023, Additional history exists Foot Exam 09/03/2025 09/03/2024, 07/28, 08/09/2022, Additional history exists Dilated Eye Exam 12/21/2025 12/22/2023, , 10/15/2021, Additional history exists Prostate Cancer Screening-PSA 12/31/2025, 12/12/2023, 08/02/2022, Additional history exists eGFR 12/31/2025 12/31/2024, 03/0 10/2024, 05/01/2024, Additional history exists Depression Screening 02/11/2026 02/11/2025, 01/24/2025, 01/08/2025, Additional history exists Fall Risk Assessment 02/11/2026 02/11/2025, 01/24/2025, 01/08/2025, Additional history exists Colon Cancer Screening-Colonoscopy 06/07/2027 06/07/2022, 02/11/2016, 02/11/2016, Additional history exists DTaP/Tdap/Td Vaccine (3 - Td or Tdap) 01/17/2035 01/17/2025, 02/25/2009 Hepatitis C Screening Completed 04/13/2015, 015 Pneumococcal vaccine 65+ Completed 12/04/2018, 07/2014 Zoster Vaccine Completed 06/12/2020, 09/2019, 02/23/2020, Additional history exists Colon Cancer Screening-CT Colonography Discontinued 06/07/2022, 02/11/2016, 02/11/2016, Additional history exists Colon Cancer Screening-DNA Stool Discontinued 06/07/2022, 02/11/2016, 02/11/2016, Additional history exists Colon Cancer Screening-FIT Discontinued 06/07, 02/11/2016, 02/11/2016, Additional history exists Colon Cancer Screening-Sigmoidoscopy Discontinued 06/07/2022, 02/11/2016, 02/11/2016, Additional history exists Hepatitis B Screening Completed 05/01/2024 Goals Goal Patient Goal Type Associated Problems Recent Progress Patient-Stated? Author [facility] No change(2018 11:46 AM CDT) No Melva Diaz, PASCUAL Note: Patient will establish a comfort-function goal and identify the pain level that will allow the patient to perform desired activities and achieve an acceptable quality of life. Procedures Procedure Name Priority Date/Time Associated Diagnosis Comments ALLERGEN BIRCH COMMON SILVER (TREE) IGE Routine 03/14/2025 8:21 AM CDT Non-seasonal allergic rhinitis due to pollen ALLERGEN MOUNTAIN JUNIPER (TREE) IGE Routine 03/14/2025 8:21 AM CDT Non-seasonal allergic rhinitis due to pollen ALLERGEN WALNUT (TREE) IGE Routine 03/14/2025 8:21 AM CDT Non-seasonal allergic rhinitis due to pollen ALLERGEN DAVID GRASS (GRASS) IGE Routine 03/14/2025 8:21 AM CDT Non-seasonal allergic rhinitis due to pollen ALLERGEN PLANTAIN TAJIK (WEED) IGE Routine 03/14/2025 8:21 AM CDT Non-seasonal allergic rhinitis due to pollen ALLERGEN EPITHELIA/DANDER DOG (ANIMAL) IGE Routine 03/14/2025 8:21 AM CDT Non-seasonal allergic rhinitis due to pollen ALLERGEN DERMATOPHAGOIDES PTERONYSSINUS (INSECT) IGE Routine 03/14/2025 8:21 AM CDT Non-seasonal allergic rhinitis due to pollen ALLERGEN DERMATOPHAGOIDES FARINAE (INSECT) IGE Routine 03/14/2025 8:21 AM CDT Non-seasonal allergic rhinitis due to pollen ALLERGEN COCKROACH BERMUDIAN (INSECT) IGE Routine 03/14/2025 8:21 AM CDT Non-seasonal allergic rhinitis due to pollen ALLERGEN EPITHELIA/DANDER CAT (ANIMAL) IGE Routine 03/14/2025 8:21 AM CDT Non-seasonal allergic rhinitis due to pollen ALLERGEN PENICILLIUM CHRYSOGENUM (MOLD) IGE Routine 03/14/2025 8:21 AM CDT Non-seasonal allergic rhinitis due to pollen ALLERGEN CLADOSPORIUM HERBARUM (MOLD) IGE Routine 03/14/2025 8:21 AM CDT Non-seasonal allergic rhinitis due to pollen ALLERGEN ASPERGILLUS FUMIGATUS (MOLD) IGE Routine 03/14/2025 8:21 AM CDT Non-seasonal allergic rhinitis due to pollen ALLERGEN ALTERNARIA TENUIS (MOLD) IGE Routine 03/14/2025 8:21 AM CDT Non-seasonal allergic rhinitis due to pollen ALLERGEN RAGWEED SHORT/COMMON (WEED) IGE Routine 03/14/2025 8:21 AM CDT Non-seasonal allergic rhinitis due to pollen ALLERGEN PIGWEED ROUGH (WEED) IGE Routine 03/14/2025 8:21 AM CDT Non-seasonal allergic rhinitis due to pollen ALLERGEN YUNG GRASS (GRASS) IGE Routine 03/14/2025 8:21 AM CDT Non-seasonal allergic rhinitis due to pollen ALLERGEN BERMUDA GRASS (GRASS) IGE Routine 03/14/2025 8:21 AM CDT Non-seasonal allergic rhinitis due to pollen ALLERGEN SYCAMORE BERMUDIAN (TREE) IGE Routine 03/14/2025 8:21 AM CDT Non-seasonal allergic rhinitis due to pollen ALLERGEN OAK RED (TREE) IGE Routine 03/14/2025 8:21 AM CDT Non-seasonal allergic rhinitis due to pollen ALLERGEN MULBERRY (TREE) IGE Routine 03/14/2025 8:21 AM CDT Non-seasonal allergic rhinitis due to pollen ALLERGEN MAPLE/BOX ELDER (TREE) IGE Routine 03/14/2025 8:21 AM CDT Non-seasonal allergic rhinitis due to pollen ALLERGEN ELM (TREE) IGE Routine 03/14/2025 8:21 AM CDT Non-seasonal allergic rhinitis due to pollen ALLERGEN BILL'S QUARTER (WEED) IGE Routine 03/14/2025 8:21 AM CDT Non-seasonal allergic rhinitis due to pollen ALLERGEN NETTLE (WEED) IGE Routine 03/14/2025 8:21 AM CDT Non-seasonal allergic rhinitis due to pollen SCAN - RADIOLOGY/IMAGING 02/25/2025 MRI LUMBAR SPINE WO CONTRAST Schedule Routine, Read Routine (OP Routine) 02/06/2025 8:48 AM CDT Compression fracture of L1 vertebra, initial encounter (HCC) Low back pain, unspecified back pain laterality, unspecified chronicity, unspecified whether sciatica present SCAN - RADIOLOGY/IMAGING 01/17/2025 COMPREHENSIVE METABOLIC PANEL Routine 12/31/2024 7:21 AM CDT Hypertension associated with diabetes (HCC) Hyperlipidemia, unspecified hyperlipidemia type Type 2 diabetes mellitus with hyperlipidemia (HCC) HEMOGLOBIN A1C Routine 12/31/2024 7:21 AM CDT Hypertension associated with diabetes (HCC) Hyperlipidemia, unspecified hyperlipidemia type Type 2 diabetes mellitus with hyperlipidemia (HCC) PSA SCREEN Routine 12/31/2024 7:21 AM CDT Prostate cancer screening LIPID PANEL WITH REFLEX TO DIRECT LDL Routine 08/28/2024 7:20 AM HYDRAULIC JACK OPERATOR Type 2 diabetes mellitus with hyperlipidemia (HCC) Hypertension associated with diabetes (HCC) ALBUMIN CREATININE RATIO, URINE Routine 08/28/2024 7:20 AM HYDRAULIC JACK OPERATOR Type 2 diabetes mellitus with hyperlipidemia (HCC) Hypertension associated with diabetes (HCC) CT LUNG CANCER SCREENING Schedule Routine, Read Routine (OP Routine) 05/18/2024 8:29 AM HYDRAULIC JACK OPERATOR Personal history of nicotine dependence DIABETIC EYE EXAM Routine 12/22/2023 COLONOSCOPY 06/07/2022 9:03 AM HYDRAULIC JACK OPERATOR HM HEPATITIS C SCREENING Routine 04/13/2015 from Last 3 Months or Most Recently Relevant to Health Maintenance Results * Allergen Penicillium chrysogenum (mold) IgE (03/14/2025 8:21 AM CDT) Penicillium chrysogenum IgE <0.10 0.00 - 0.34 kUnits/L Comment:Testing performed by : [facility], [address] [place] [address], [place] [id number] Blood 03/14/2025 8:21 AM CDT 03/14/2025 11:46 AM CDT Carmencita Wilson DO LAB BLOOD ORDERABLES Final R esult Performing Organization Address City/State/[facility] Co de Phone Number [facility] [place]) 1 [facility] [place] [address] * Allergen Glenville (tree) IgE (03/14/2025 8:21 AM CDT) Glenville IgE <0.10 0.00 - 0.34 kUnits/L Comment:Testing performed by : [facility], [address] [place] [address], [place] [id number] Blood 03/14/2025 8:21 AM CDT 03/14/2025 11:46 AM CDT us Carmencita Wilson LAB BLOOD ORDERABLES Final R esult KAREN HOFFMAN ([place]) [address] [place] [address] * Allergen Mountain juniper (tree) IgE (03/14/2025 8:21 AM CDT) Mountain juniper IgE <0.10 0.00 - 0.34 kUnits/L Comment:Testing performed by : [facility], [address] [place] [address]., [id number] Blood 03/14/2025 8:21 AM CDT 03/14/2025 11:46 AM CDT Carmencita Montgomery Katie LAB BLOOD ORDERABLES Final R esult Performing Organization Address City/[facility]/ZIP Co de Phone Number KAREN HOFFMAN ([place]) [address] [place] [address] * Allergen Bermuda grass (grass) IgE (03/14/2025 8:21 AM CDT) Bermuda grass IgE <0.10 0.00 - 0.34 kUnits/L Comment:Testing performed by : [facility], [address] [place] [address]., [id number] Blood 03/14/2025 8:21 AM CDT 03/14/2025 11:46 AM CDT Carmencita Wilson LAB BLOOD ORDERABLES Final R esult KAREN HOFFMAN ([place]) [address] [place] [address] [employer] [place] [address] * Allergen Plantain maori (weed) IgE (03/14/2025 8:21 AM CDT) Plantain maori IgE <0.10 0.00 - 0.34 kUnits/L Comment:Testing performed by : [facility], [address] [place] [address]., [id number] Blood 03/14/2025 8:21 AM CDT 03/14/2025 11:46 AM CDT Carmencita Wilson DO LAB BLOOD ORDERABLES Final R esult KAREN [facility]OFF[facility] ([place]) [address] [place] [address] * Allergen Elm (tree) IgE (03/14/2025 8:21 AM CDT) Elm IgE <0.10 0.00 - 0.34 kUnits/L Comment:Testing performed by : [facility], [address] [place] [address], [id number] Blood 03/14/2025 8:21 AM CDT 03/14/2025 11:46 AM CDT Carmencita Wilson DO LAB BLOOD ORDERABLES Final R esult Performing Organization Address City/[facility] Co de Phone Number KAREN HOFFMAN ([place]) [address] [place] [address] [employer] [place] [address] * Allergen Cladosporium herbarum (mold) IgE (03/14/2025 8:21 AM CDT) Cladosporium herbarum IgE <0.10 0.00 - 0.34 kUnits/L Comment:Testing performed by : [facility], [address] [place] [address], [place] [id number] Blood 03/14/2025 8:21 AM CDT 03/14/2025 11:46 AM CDT Carmencita Valentina Wilson LAB BLOOD ORDERABLES Final R esult KAREN HOFFMAN ([place]) [address] [place] [address] * Allergen Birch common silver (tree) IgE (03/14/2025 8:21 AM CDT) Birch common silver IgE <0.10 0.00 - 0.34 kUnits/L Comment:Testing performed by : [facility], [address] [place] [address], [id number] Blood 03/14/2025 8:21 AM CDT 03/14/2025 11:46 AM CDT Carmencita Wilson LAB BLOOD ORDERABLES Final R esult [facility] ([place]) [address] [place] [address] * Allergen Alternaria tenuis (mold) IgE (03/14/2025 8:21 AM CDT) Alternaria tenius IgE <0.10 0.00 - 0.34 kUnits/L Comment:Testing performed by : [facility], [address] [place] [address], [id number] Blood 03/14/2025 8:21 AM CDT 03/14/2025 11:46 AM CDT Carmencita Wilson DO LAB BLOOD ORDERABLES Final R esult [facility] ([place]) [address] [place] [address] * Allergen Aspergillus fumigatus (mold) IgE (03/14/2025 8:21 AM CDT) Aspergillus fumigatus IgE <0.10 0.00 - 0.34 kUnits/L Comment:Testing performed by : [facility], [address] [place] [address], [id number] Blood 03/14/2025 8:21 AM CDT 03/14/2025 11:46 AM CDT Carmencita Wilson DO LAB BLOOD ORDERABLES Final R esult KAREN HOFFMAN ([place]) 1 [facility] [employer] [place] [address] * Allergen Dermatophagoides pteronyssinus (insect) IgE (03/14/2025 8:21 AM CDT) Dermatophyton pteronyssinus IgE <0.10 0.00 - 0.34 kUnits/L Comment:Testing performed by : [address], [id number] Blood 03/14/2025 8:21 AM CDT 03/14/2025 11:46 AM CDT Carmencita Wilson DO LAB BLOOD ORDERABLES Final R esult Performing Organization Address City/[facility]/ZIP Co de Phone Number KAREN HOFFMAN ([place]) [address] [place] [address] * Allergen Dermatophagoides farniae (insect) IgE (03/14/2025 8:21 AM CDT) Dermatophyton farinae IgE <0.10 0.00 - 0.34 kUnits/L Comment:Testing performed by : [facility], [address] [place] [address]., [id number] Blood 03/14/2025 8:21 AM CDT 03/14/2025 11:46 AM CDT Carmencita Wilson DO LAB BLOOD ORDERABLES Final R esult KAREN HOFFMAN ([place]) 1 [facility] [employer] [place] [address] * Allergen Epithelia/dander dog (animal) IgE (03/14/2025 8:21 AM CDT) Dog dander IgE <0.10 0.00 - 0.34 kUnits/L Comment:Testing performed by : [facility], [address] [place] [address], [id number] Blood 03/14/2025 8:21 AM CDT 03/14/2025 11:46 AM CDT Carmencita Wilson DO LAB BLOOD ORDERABLES Final R esult Performing Organization Address City/[facility] Co de Phone Number [facility] ([place]) [address] [place] [address] [employer] [place] [address] * Allergen Cockroach afghan (insect) IgE (03/14/2025 8:21 AM CDT) Cockroach IgE <0.10 0.00 - 0.34 kUnits/L Comment:Testing performed by : [facility], [address] [place] [address], [id number] Blood 03/14/2025 8:21 AM CDT 03/14/2025 11:46 AM CDT Carmencita Wilson DO LAB BLOOD ORDERABLES Final R esult Performing Organization Address City/State/[facility] Co de Phone Number [facility] ([place]) [address] [place] [address] [employer] [place] [address] * Allergen Epithelia/dander cat (animal) IgE (03/14/2025 8:21 AM CDT) Cat dander IgE <0.10 0.00 - 0.34 kUnits/L Comment:Testing performed by : [facility], [address] [place] [address], [id number] Blood 03/14/2025 8:21 AM CDT 03/14/2025 11:46 AM CDT Carmencita Orozcoel LAB BLOOD ORDERABLES Final R esult K[facility]EN [facility] ([place]) 1 [facility] [place] [place] [address] * Allergen Ragweed short/common (weed) IgE (03/14/2025 8:21 AM CDT) Ragweed common IgE <0.10 0.00 - 0.34 kUnits/L Comment:Testing performed by : [facility], [address] [place] [address]., [id number] Blood 03/14/2025 8:21 AM CDT 03/14/2025 11:46 AM CDT Carmencita Valentina Wilson DO LAB BLOOD ORDERABLES Final R esult Performing Organization Address City/[facility]/ZIP Co de Phone Number KAREN HOFFMAN ([place]) [address] [place] [address] * Allergen Pigweed, rough (weed) IgE (03/14/2025 8:21 AM CDT) Pigweed rough IgE <0.10 0.00 - 0.34 kUnits/L Comment:Testing performed by : [facility], [address] [place] [address]., [id number] Blood 03/14/2025 8:21 AM CDT 03/14/2025 11:46 AM CDT Carmencita Montgomery Katie MARTINEZ LAB BLOOD ORDERABLES Final R esult KAREN HOFFMAN ([place]) 1 [facility] [employer] [place] [address] * Allergen Nettle (weed) IgE (03/14/2025 8:21 AM CDT) Nettle IgE <0.10 0.00 - 0.34 kUnits/L Comment:Testing performed by : [facility] [address] [place] [address]., [id number] Blood 03/14/2025 8:21 AM CDT 03/14/2025 11:46 AM CDT Carmencita Valentina Wilson DO LAB BLOOD ORDERABLES Final R esult KAREN HOFFMAN ([place]) 1 [facility] [place] [address] * Allergen Bill's quarter (weed) IgE (03/14/2025 8:21 AM CDT) Bill's quarters IgE <0.10 0.00 - 0.34 kUnits/L Comment:Testing performed by : [facility], [address] [place] [address]., [id number] Blood 03/14/2025 8:21 AM CDT 03/14/2025 11:46 AM CDT Carmencita Wilson DO LAB BLOOD ORDERABLES Final R esult Performing Organization Address City/[facility]/ZIP Co de Phone Number KAREN HOFFMAN ([place]) [address] [place] [address] [place] [address] * Allergen Yung grass (grass) IgE (03/14/2025 8:21 AM CDT) Yung grass IgE <0.10 0.00 - 0.34 kUnits/L Comment:Testing performed by : [facility], [address] [place] [address], [place] [id number] Blood 03/14/2025 8:21 AM CDT 03/14/2025 11:46 AM CDT Carmencita Wilson LAB BLOOD ORDERABLES Final R esult KAREN HOFFMAN ([place]) 1 [place] [place] [address] * Allergen David grass (grass) IgE (03/14/2025 8:21 AM CDT) David grass IgE <0.10 0.00 - 0.34 kUnits/L Comment:Testing performed by : [facility], [address] [place] [address], [id number] Blood 03/14/2025 8:21 AM CDT 03/14/2025 11:46 AM CDT Carmencita RodriguezSubhash Wilson LAB BLOOD ORDERABLES Final R esult KAREN HOFFMAN ([place]) [address] [place] [address] * Allergen Oakley (tree) IgE (03/14/2025 8:21 AM CDT) Pathologist [facility] Oakley (tree) IgE <0.10 0.00 - 0.34 kUnits/L Comment:Testing performed by : [facility], [address] [place] [address], [id number] Blood 03/14/2025 8:21 AM CDT 03/14/2025 11:46 AM CDT Carmencita RodriguezSubhash Wilson DO LAB BLOOD ORDERABLES Final R esult KAREN HOFFMAN ([place]) [address] [place] [address] * Allergen Canton afghan (tree) IgE (03/14/2025 8:21 AM CDT) [place]on IgE <0.10 0.00 - 0.34 kUnits/L Comment:Testing performed by : [facility], [address] [place] [address]., [id number] Blood 03/14/2025 8:21 AM CDT 03/14/2025 11:46 AM CDT Carmencita Valentina Wilson DO LAB BLOOD ORDERABLES Final R esult KAREN HOFFMAN ([place]) 1 [facility] [place] [address] * Allergen Maple/Box elder (tree) IgE (03/14/2025 8:21 AM CDT) Maple/box elder IgE <0.10 0.00 - 0.34 kUnits/L Comment:Testing performed by : [facility], [address] [place] [address]., [id number] Blood 03/14/2025 8:21 AM CDT 03/14/2025 11:46 AM CDT Carmencita Valentina Wilson DO LAB BLOOD ORDERABLES Final R esult Performing Organization Address City/[facility] Co de Phone Number KAREN HOFFMAN ([place]) [address] [place] [address] * Allergen Row[place] red (tree) IgE (03/14/2025 8:21 AM CDT) [place] IgE <0.10 0.00 - 0.34 kUnits/L Comment:Testing performed by : [facility], [address] [place] [address]., [id number] Blood 03/14/2025 8:21 AM CDT 03/14/2025 11:46 AM CDT Carmencita Valentina Wilson DO LAB BLOOD ORDERABLES Final R esult KAREN HOFFMAN ([place]) 1 [facility] [place] [place] [address] * SCAN - RADIOLOGY/IMAGING (02/25/2025) Anatomical Region Laterality Modality Other us Ismael AMAYA Edited Result - Final * MRI Lumbar Spine WO Contrast (02/06/2025 8:48 AM CDT) Anatomical Region Laterality Modality Spine N/A Magnetic Resonan ce 02/06/2025 1:37 PM CDT Narrative 02/06/2025 1:57 PM CDT EXAM DESCRIPTION: MRI LUMBAR SPINE WO CONTRAST REASON FOR STUDY: Compression fracture, lumbar 3 weeks ago pt fell and injured his back; XR performed which mentions a fracture at L1; initial encounter; hx of arthritis and degenerative disc disease TECHNIQUE: Sagittal and Axial imaging includes T1, T2, STIR sequences. COMPARISON: Comparison lumbar MRI 09/21/2023. FINDINGS: SEGMENTATION: No transitional anatomy. The lowest well-developed disc space is labeled L5-S1. ALIGNMENT: Normal. VERTEBRAE: Loss of height along the superior L1 vertebra with acute marrow edema in keeping with an recent/probably subacute insufficiency fracture. No paraspinal soft tissue swelling or edema. No retropulsion of the posterosuperior vertebral margin but mild loss of height along the anterior endplate. There has been interval development of multiple fatty areas within the L2, L3, L4 and L5 vertebra with central nonenhancing foci are nonspecific. CT correlation is suggested. Postoperative changes are present with laminectomy at L3-4 and L4-5 levels.. DISC HEIGHT: Disc space narrowing with irregular endplate changes at L2-3, L3-4 at L4-5. HARDWARE: None in the spine. CORD/CAUDA: Normal in size and signal intensity. Conus at the appropriate level. LOWER THORACIC: Incompletely imaged. No stenosis seen. INDIVIDUAL DISC LEVELS: L1-2: No diffuse disc bulge or focal herniation. No significant spinal canal or neuroforaminal stenosis. L2-3: No diffuse disc bulge or focal herniation. No significant spinal canal or neuroforaminal stenosis. L3-4: Disc degeneration with chronic fatty reactive endplate changes. No significant foraminal narrowing or central canal stenosis L4-5: Disc space narrowing. Lateral endplate osteophytic spurring. No significant central canal stenosis or foraminal stenosis. L5-S1: Diffuse bulge. No significant central canal stenosis or foraminal stenosis. SACRUM: Visualized upper sacrum intact. VISUALIZED UPPER ABDOMEN: No significant abnormality. OTHER: No other significant findings. IMPRESSION: 1. Interval development of a acute-subacute insufficiency fracture of L1 with mild loss of height along the anterior endplate. No retropulsion or spinal stenosis. 2. Interval development of multiple fatty areas within the L2, L3, L4 and L5 vertebra with central nonenhancing foci. CT correlation is suggested. 3. Postoperative change with laminectomy at L3-4 and L4-5. No significant central canal stenosis or foraminal narrowing at any level. THIS IS AN ELECTRONICALLY VERIFIED FINAL REPORT 02/06/2025 1:57 PM - Electronically signed by Sandor Mayers M.D. LC: SARAH Report ID: [id number] Reading Location: [id number] Procedure Note Michelle Mayers MD - 02/06/2025 EXAM DESCRIPTION: MRI LUMBAR SPINE WO CONTRAST REASON FOR STUDY: Compression fracture, lumbar 3 weeks ago pt fell and injured his back; XR performed which mentions a fracture at L1; initial encounter; hx of arthritis and degenerative disc disease TECHNIQUE: Sagittal and Axial imaging includes T1, T2, STIR sequences. COMPARISON: Comparison lumbar MRI 09/21/2023. FINDINGS: SEGMENTATION: No transitional anatomy. The lowest well-developed discspace is labeled L5-S1. ALIGNMENT: Normal. VERTEBRAE: Loss of height along the superior L1 vertebra with acutemarrow edema in keeping with an recent/probably subacute insufficiency fracture.No paraspinal soft tissue swelling or edema. No retropulsion of the posterosuperior vertebral margin but mild loss of height along theanterior endplate. There has been interval development of multiple fatty areaswithin the L2, L3, L4 and L5 vertebra with central nonenhancing foci arenonspecific. CT correlation is suggested. Postoperative changes are present with laminectomy at L3-4 and L4-5 levels.. DISC HEIGHT: Disc space narrowing with irregular endplate changes atL2-3, L3-4 at L4-5. HARDWARE: None in the spine. CORD/CAUDA: Normal in size and signal intensity. Conus at theappropriate level. LOWER THORACIC: Incompletely imaged. No stenosis seen. INDIVIDUAL DISC LEVELS: L1-2: No diffuse disc bulge or focal herniation. No significant spinalcanal or neuroforaminal stenosis. L2-3: No diffuse disc bulge or focal herniation. No significant spinalcanal or neuroforaminal stenosis. L3-4: Disc degeneration with chronic fatty reactive endplate changes.No significant foraminal narrowing or central canal stenosis L4-5: Disc space narrowing. Lateral endplate osteophytic spurring. No significant central canal stenosis or foraminal stenosis. L5-S1: Diffuse bulge. No significant central canal stenosis orforaminal stenosis. SACRUM: Visualized upper sacrum intact. VISUALIZED UPPER ABDOMEN: No significant abnormality. OTHER: No other significant findings. IMPRESSION: 1. Interval development of a acute-subacute insufficiency fracture of L1 with mild loss of height along the anterior endplate. No retropulsion or spinal stenosis. 2. Interval development of multiple fatty areas within the L2, L3, L4and L5 vertebra with central nonenhancing foci. CT correlation is suggested. 3. Postoperative change with laminectomy at L3-4 and L4-5. Nosignificant central canal stenosis or foraminal narrowing at any level. THIS IS AN ELECTRONICALLY VERIFIED FINAL REPORT 02/06/2025 1:57 PM - Electronically signed by Sandor Mayers M.D. LC: SARAH Report ID: [id number] Reading Location: [place] [address] Ismael AMAYA IMG MRI PROCEDURES Adrianna l Result * SCAN - RADIOLOGY/IMAGING (01/17/2025) Anatomical Region Laterality Modality Other Ismael AMAYA Edited Result - Final * PSA screen (12/31/2024 7:21 AM CDT) PSA 0.98 < OR = 4.00 ng/mL [facility] Comment: The total PSA value from this assay system is standardized against the WHO standard. The test result will be approximately 20% lower when compared to the equimolar-standardized total PSA ([place]). Comparison of serial PSA results should be interpreted with this fact in mind. This test was performed using the Siemens chemiluminescent method. Values obtained from different assay methods cannot be used interchangeably. PSA levels, regardless of value, should not be interpreted as absolute evidence of the presence or absence of disease. Blood 12/31/2024 7:21 AM CDT 12/31/2024 7:23 AM CDT Narrative [facility] - 01/01/2025 3:12 AM CDT FASTING:YES FASTING: YES Ismael AMAYA LAB BLOOD ORDERABLES Fi nal Result [facility] [address] [place] [address] * (ABNORMAL) Hemoglobin A1c (12/31/2024 7:21 AM CDT) Hgb A1C 6.2(H) <5.7 % of total Hgb [facility] Comment: For someone without known diabetes, a hemoglobin A1c value between 5.7% and 6.4% is consistent with prediabetes and should be confirmed with a follow-up test. For someone with known diabetes, a value <7% indicates that their diabetes is well controlled. A1c targets should be individualized based on duration of diabetes, age, comorbid conditions, and other considerations. This assay result is consistent with an increased risk of diabetes. Currently, no consensus exists regarding use of hemoglobin A1c for diagnosis of diabetes for children. Blood 12/31/2024 7:21 AM CDT 12/31/2024 7:23 AM CDT Narrative [facility] - 01/01/2025 3:12 AM CDT FASTING:YES FASTING: YES Ismael AMAYA LAB BLOOD ORDERABLES Fi nal Result [facility] [address] [place] [address] * (ABNORMAL) Comprehensive metabolic panel (12/31/2024 7:21 AM CDT) Glucose 128(H) 65 - 99 mg/dL [facility] Comment: Fasting reference interval For someone without known diabetes, a glucose value >125 mg/dL indicates that they may have diabetes and this should be confirmed with a follow-up test. BUN 14 7 - 25 mg/dL [facility] Creatinine 0.89 0.70 - 1.28 mg/dL [facility] eGFR 89 > OR = 60 mL/min/1. 73m2 [facility] BUN/creat ratio SEE NOTE: 6 - 22 (calc) [facility] Comment: Not Reported: BUN and Creatinine are within reference range. Sodium 138 135 - 146 mmol/L [facility] Potassium, pl 4.0 3.5 - 5.3 mmol/L [facility] Chloride 98 98 - 110 mmol/L [facility] Comment: Greatly elevated Triglycerides values (>1200 mg/dL) interfere with the dLDL assay. CO2 29 20 - 32 mmol/L [facility] Calcium 9.4 8.6 - 10.3 mg/dL [facility] Protein, sr 6.5 6.1 - 8.1 g/dL [facility] Albumin 4.4 3.6 - 5.1 g/dL [facility] GLOBULIN 2.1 1.9 - 3.7 g/dL (calc) [facility] Alb/glob ratio 2.1 1.0 - 2.5 (calc) [facility] Bilirubin, total 0.6 0.2 - 1.2 mg/dL [facility] Alk phos 49 35 - 144 U/L [facility] AST 12 10 - 35 U/L [facility] ALT (SGPT) 14 9 - 46 U/L [facility] Blood 12/31/2024 7:21 AM CDT 12/31/2024 7:23 AM CDT Narrative [facility] - 01/01/2025 3:12 AM CDT FASTING:YES FASTING: YES us Ismael AMAYA LAB BLOOD ORDERABLES Fi nal Result [facility] [address] [address] * Lipid panel with reflex to direct LDL (08/28/2024 7:20 AM HYDRAULIC JACK OPERATOR) Cholesterol 121 <200 mg/dL [facility] HDL 45 > OR = 40 mg/dL [facility] Triglycerides 103 <150 mg/dL [facility] LDL 57 mg/dL (calc) [facility] Comment: Reference range: <100 Desirable range <100 mg/dL for primary prevention; <70 mg/dL for patients with CHD or diabetic patients with > or = 2 CHD risk factors. LDL-C is now calculated using the Angelica calculation, which is a validated novel method providing better accuracy than the Friedewald equation in the estimation of LDL-C. Bakari SS et al. YAMIL. 2013;310(19): 1587-7497 (http://education.[employer]/faq/HVX945) Chol/HDL ratio 2.7 <5.0 (calc) [facility] Non-HDL, (LDL+VLDL) 76 <130 mg/dL (calc) [facility] Comment: For patients with diabetes plus 1 major ASCVD risk factor, treating to a non-HDL-C goal of <100 mg/dL (LDL-C of <70 mg/dL) is considered a therapeutic option. Blood 08/28/2024 7:20 AM HYDRAULIC JACK OPERATOR 08/28/2024 7:21 AM HYDRAULIC JACK OPERATOR Narrative [facility] - 08/29/2024 5:39 AM HYDRAULIC JACK OPERATOR FASTING:YES FASTING: YES us Ismael AMAYA LAB BLOOD ORDERABLES Fi nal Result [facility] [address] [place] [address] * Albumin Creatinine Ratio, Urine (08/28/2024 7:20 AM HYDRAULIC JACK OPERATOR) Creatinine, ur 107 20 - 320 mg/dL [facility] Microalbumin, ur 1.9 See Note: mg/dL [facility] Comment: Reference Range: Reference Range Not established Microalbumin/creat ratio 18 <30 mg/g creat [facility] Comment: The ADA defines abnormalities in albumin excretion as follows: Albuminuria Category Result (mg/g creatinine) Normal to Mildly increased <30 Moderately increased 30-299 Severely increased > OR = 300 The ADA recommends that at least two of three specimens collected within a 3-6 month period be abnormal before considering a patient to be within a diagnostic category. Urine 08/28/2024 7:20 AM HYDRAULIC JACK OPERATOR 08/28/2024 7:21 AM HYDRAULIC JACK OPERATOR Narrative [facility] - 08/29/2024 5:39 AM HYDRAULIC JACK OPERATOR FASTING:YES FASTING: YES us Ismael AMAYA LAB URINE ORDERABLES Fi nal Result [facility] [address] [place] [address] * CT Lung Cancer Screening (05/18/2024 8:29 AM HYDRAULIC JACK OPERATOR) Anatomical Region Laterality Modality Chest N/A Computed Tomogra phy 05/22/2024 3:33 PM HYDRAULIC JACK OPERATOR Narrative 05/22/2024 3:41 PM HYDRAULIC JACK OPERATOR EXAM DESCRIPTION: CT LUNG CANCER SCREENING REASON FOR STUDY: Screening CT of the chest in a former smoker with a 72 pack year smoking history. Additional history: None. TECHNIQUE: Low dose CT scan of the chest was performed without intravenous contrast using helical scanning technique. The exam extends from the lung apices through the lung bases. Automatic exposure control was used as a dose optimization technique. NOTE: This study was performed for the specific purposes of lung cancer screening and is not an alternative to diagnostic chest CT. RADIATION DOSE: CT dose index volume (CTDIvol) = 2.28 mGy COMPARISON: None FINDINGS: SMOKING RELATED LUNG DISEASE: There are mild emphysematous changes of lungs with scattered mild subsegmental atelectasis and scarring. There is mild biapical pleural thickening and scarring. There is no definite evidence of a pneumothorax. The central airways are grossly patent. There are scattered mild bronchial wall thickening, which is likely related to mild chronic bronchitis/bronchiolitis. There is no definite evidence of pleural effusion. LUNG NODULES: There are patchy tree-in-bud nodular airspace opacities noted in the bilateral lower lobes, which is concerning for a focus of airspace disease of inflammatory or infectious etiology. For example, there is tree-in-bud nodular airspace opacity in the posterior right lower lobe measuring 0.3 cm (axial image 182). There is a tree-in-bud nodular airspace opacity in the posterolateral left lower lobe measuring 0.3 cm (axial image 223). There are additional scattered pulmonary nodules noted. For example, there is a 0.3 cm pulmonary nodule in the posterior right upper lobe (axial image 32). There is a subpleural 0.6 cm pulmonary nodule in the posterior right upper lobe (axial image 61). There is a 0.3 cm pulmonary nodule in the lateral left upper lobe (axial image 100). CORONARY ARTERY CALCIFICATION: Present. OTHER: The heart size is upper limits of normal. There is no definite evidence of pericardial effusion. There are atherosclerotic changes of the thoracic aorta and coronary vessels. There is mild aneurysmal dilatation of the ascending thoracic aorta measuring up to 4.2 cm at the level of the main pulmonary artery. There is no definite unenhanced CT evidence of mediastinal, hilar, or axillary lymphadenopathy. There are scattered subcentimeter mediastinal lymph nodes noted with largest measuring 0.8 cm in the subcarinal region (axial image 131). Scattered calcified mediastinal and right hilar lymph nodes are noted. There is small hiatal hernia. There is nonspecific nodular thickening of the bilateral adrenal glands. There is partial visualization of multiple nodules in the bilateral adrenal glands with the largest measuring up to 2.1 cm on the right and 2.4 cm on the left, which are incompletely characterized on the current study due to incomplete visualization. There is a minimal to mild dextroscoliotic curvature of the spine with degenerative changes. IMPRESSION: Scattered pulmonary nodules noted with the largest measuring up to 0.6 cm in the posterior right upper lobe, which are probably benign. Short-term follow-up low-dose chest CT in 6 months is recommended to assess for stability as clinically indicated. Patchy tree-in-bud nodular airspace opacities in the bilateral lower lobes, which is concerning for a focus of airspace disease of inflammatory or infectious etiology. Continued attention on the aforementioned follow-up chest CT is recommended to assess for resolution and to exclude the presence of an underlying pulmonary nodule as clinically indicated. Mild emphysematous changes of lungs with scattered mild subsegmental atelectasis and scarring. Scattered mild bronchial wall thickening, which is likely related to mild chronic bronchitis/bronchiolitis. Partial visualization of multiple bilateral adrenal nodules, which are incompletely characterized on the current study. Further evaluation with CT or MRI with adrenal protocol on a nonemergent basis is recommended as clinically indicated. Lung-RADS category 3: Probably benign. Recommendation: Low dose CT of chest in 6 months. THIS IS AN ELECTRONICALLY VERIFIED FINAL REPORT 05/22/2024 3:41 PM - Electronically signed by Amilcar Lewis D.O. PS: PS Report ID: [id number] Reading Location: [id number] Procedure Note Amilcar Lewis, DO - 05/22/2024 EXAM DESCRIPTION: CT LUNG CANCER SCREENING REASON FOR STUDY: Screening CT of the chest in a former smoker with a72 pack year smoking history. Additional history: None. TECHNIQUE: Low dose CT scan of the chest was performed without intravenous contrast using helical scanning technique. The exam extends from the lung apices through the lung bases. Automatic exposure control was used as adose optimization technique. NOTE: This study was performed for the specific purposes of lung cancer screening and is not an alternative to diagnostic chest CT. RADIATION DOSE: CT dose index volume (CTDIvol) = 2.28 mGy COMPARISON: None FINDINGS: SMOKING RELATED LUNG DISEASE: There are mild emphysematous changes oflungs with scattered mild subsegmental atelectasis and scarring. There is mild biapical pleural thickening and scarring. There is no definite evidenceof a pneumothorax. The central airways are grossly patent. There arescattered mild bronchial wall thickening, which is likely related to mild chronic bronchitis/bronchiolitis. There is no definite evidence of pleuraleffusion. LUNG NODULES: There are patchy tree-in-bud nodular airspace opacitiesnoted in the bilateral lower lobes, which is concerning for a focus of airspace disease of inflammatory or infectious etiology. For example, there is tree-in-bud nodular airspace opacity in the posterior right lower lobe measuring 0.3 cm (axial image 182). There is a tree-in-bud nodularairspace opacity in the posterolateral left lower lobe measuring 0.3 cm (axialimage 223). There are additional scattered pulmonary nodules noted. For example,there is a 0.3 cm pulmonary nodule in the posterior right upper lobe (axial image32). There is a subpleural 0.6 cm pulmonary nodule in the posterior right upper lobe (axial image 61). There is a 0.3 cm pulmonary nodule in the lateralleft upper lobe (axial image 100). CORONARY ARTERY CALCIFICATION: Present. OTHER: The heart size is upper limits of normal. There is no definite evidence of pericardial effusion. There are atherosclerotic changes ofthe thoracic aorta and coronary vessels. There is mild aneurysmal dilatationof the ascending thoracic aorta measuring up to 4.2 cm at the level of themain pulmonary artery. There is no definite unenhanced CT evidence of mediastinal, hilar, oraxillary lymphadenopathy. There are scattered subcentimeter mediastinal lymphnodes noted with largest measuring 0.8 cm in the subcarinal region (axial image 131). Scattered calcified mediastinal and right hilar lymph nodes arenoted. There is small hiatal hernia. There is nonspecific nodular thickening ofthe bilateral adrenal glands. There is partial visualization of multiplenodules in the bilateral adrenal glands with the largest measuring up to 2.1 cm onthe right and 2.4 cm on the left, which are incompletely characterized on the current study due to incomplete visualization. There is a minimal to mild dextroscoliotic curvature of the spine with degenerative changes. IMPRESSION: Scattered pulmonary nodules noted with the largest measuring up to 0.6 cmin the posterior right upper lobe, which are probably benign. Short-term follow-up low-dose chest CT in 6 months is recommended to assess forstability as clinically indicated. Patchy tree-in-bud nodular airspace opacities in the bilateral lowerlobes, which is concerning for a focus of airspace disease of inflammatory or infectious etiology. Continued attention on the aforementioned follow-up chest CT is recommended to assess for resolution and to exclude thepresence of an underlying pulmonary nodule as clinically indicated. Mild emphysematous changes of lungs with scattered mild subsegmental atelectasis and scarring. Scattered mild bronchial wall thickening, which is likely related to mild chronic bronchitis/bronchiolitis. Partial visualization of multiple bilateral adrenal nodules, which are incompletely characterized on the current study. Further evaluation withCT or MRI with adrenal protocol on a nonemergent basis is recommended as clinically indicated. Lung-RADS category 3: Probably benign. Recommendation: Low dose CT of chest in 6 months. THIS IS AN ELECTRONICALLY VERIFIED FINAL REPORT 05/22/2024 3:41 PM - Electronically signed by Amilcar Lewis D.O. 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 Room: [facility] ENDOSCOPY ROOM 1 Note Status: Finalized Patient Profile: This is a 71 year old male. No family history ofcolon cancer. Screening Procedure: Colonoscopy Indications: High risk colon cancer surveillance: Personalhistory of colonic polyps, Last colonoscopy: January 2016 Referring MD: Ismael Evans PA-C Providers: Birgit Velázquez M.D. Impression: - One 8 mm polyp in the sigmoid colon, removed witha cold snare. Resected and retrieved. - Three diminutive polyps in the rectum, removedwith a cold biopsy forceps. Resected and retrieved. - Mild diverticulosis in the sigmoid colon. - Internal hemorrhoids. Recommendation: - Await pathology results. - Repeat colonoscopy in 3 - 5 years for screening purposes. - Continue present medications. Medicines: Monitored Anesthesia Care Complications: No immediate complications. Estimated Blood Loss: Estimated blood loss: none. Procedure: Pre-Anesthesia Assessment: - Prior to the procedure, a History and Physicalwas performed, and patient medications and allergieswere reviewed. The patient's tolerance of previous anesthesia was also reviewed. The risks andbenefits of the procedure and the sedation options and risks were discussed with the patient. All questions were answered, and informed consent was obtained. Prior Anticoagulants: The patient has taken noanticoagulant or antiplatelet agents. ASA Grade Assessment: III -A patient with severe systemic disease. Afterreviewing the risks and benefits, the patient was deemed in satisfactory condition to undergo the procedure. The benefits, risks and alternatives of theprocedure and sedation were discussed and informed consentwas obtained. All questions were answered. Please referto the signed informed consent document in the medical record. The bowel preparation used was Miralax and bisacodyl tablets via split dose instruction. The scope was passed under direct vision. The Pediatric Colonoscope [id number]-H190L [id number] was introducedthrough the anus and advanced to the the cecum, identifiedby appendiceal orifice and ileocecal valve. Thequality of the bowel preparation was good. Bowel prep was administered using a split dose. Findings: The perianal and digital rectal examinations were normal. The descending colon, transverse colon, ascending colon and cecum appeared normal. An 8 mm polyp was found in the sigmoid colon. The polyp was sessile.The polyp was removed with a cold snare. Resection and retrieval were complete. Three sessile polyps were found in the rectum. The polyps were diminutive in size. These polyps were removed with a cold biopsy forceps. Resection and retrieval were complete. Mild diverticulosis noted in the sigmoid colon. Internal hemorrhoids were found during retroflexion. The hemorrhoids were small. Electronically signed by Birgit Velázquez M.D. Birgit Velázquez M.D. 06/07/2022 11:12:18 AM Number of Addenda: 0 Note Initiated On: 06/07/2022 9:03 AM Procedure Code(s): --- Professional --- 08921, Colonoscopy, flexible; with removal of tumor(s), polyp(s), or other lesion(s) by snare technique 81105, 59, Colonoscopy, flexible; with biopsy, single or multiple Diagnosis Code(s): --- Professional --- Z86.010, Personal history of colonic polyps K64.8, Other hemorrhoids D12.5, Benign neoplasm of sigmoid colon K57.30, Diverticulosis of large intestine without perforation orabscess without bleeding D12.8, Benign neoplasm of rectum CPT copyright 2020 [employer]. All rights reserved. The codes documented in this report are preliminary and upon grid molder reviewmay be revised to meet current compliance requirements. Recognized by the [place] [employer] for promoting quality in endoscopy Birgit Velázquez MD ENDOSCOPY PROCEDURES Final Result * HEPATITIS C SCREENING (04/13/2015) HEP C Normal Comment:NEGATIVE Historical Provider HEALTH MAINTENANCE Final Result from Last 3 Months or Most Recently Relevant to Health Maintenance Insurance MEDICARE COMMERCIAL GENERIC COMMERCIAL GENERIC MEDICARE LOCAL [address] SUPPLEMENT Advance Directives For more information, please contact: [phone] * Full Code (Latest Code Status on File) Date Activated Date Inactivated Comments 04/26/2024 8:09 AM 04/26/2024 2:45 PM * Full Code Date Activated Date Inactivated Comments 04/26/2024 8:09 AM 04/26/2024 8:09 AM * Full Code Date Activated Date Inactivated Comments 06/07/2022 9:09 AM 06/07/2022 4:09 PM * Full Code Date Activated Date Inactivated Comments 06/07/2022 9:08 AM 06/07/2022 9:09 AM Care Teams Supervisor Inventory Merchandising Relationship Specialty Start Date End Date Ismael Evans PA [address] [place] [address] [place] [address] PCP - General Internal Medicine 03/17/22 Narciso Bill, IAN [address] [facility] [place] [address] Consulting Physician Foot and Ankle Surg 01/24/25 [facility] 04/25/24
--- OUTSIDE RECORDS SUMMARY | 2025-04-09 10:51 | XMS_ITS | Encounter Summary ---
Author Organization [facility] Healthcare Address [address] [place] [address] Care Team Providers Care Geriatric Social Worker Name Role Phone Ismael Evans Primary Care Provider Kurt Paige MD Unavailable [phone] Teddy Dumont MD Unavailable [phone] Narciso BillM Unavailable [phone] Narciso Bill DPM Unavailable [phone] Encounter Details Date Type Department Care Team (Late st Contact Info) Description 04/05/2024 Orders Only [facility] [place] Health Information Management [address] [place] [id number] Ismael Evans PA [address] [place] [address] [address] Social History Tobacco Use Types Packs/Day Years Used Date Smoking Tobacco: Former Smokeless Tobacco: Former Quit: 2011 Comments:Smoking History Pac ks/day: 1.5 Packs Alcohol Use Standard Drinks/Week Comments Yes 0 (1 standard drink = 0.6 oz pur e alcohol) AUDIT-C Answer Date Recorded Q1: How often do you have a drink containing alc ohol? 2-4 times a month 06/07/2022 Q2: How many drinks containi ng alcohol do you have on a typical day when you are drinking? 3 or 4 06/07/2022 Q3: How often do you have si x or more drinks on one occasion? Weekly 06/07/2022 PHQ-2 Answer Date Recorded PHQ-2 Total Score (If total score is 3 or more points, staff should administer the PHQ-9) 0 03/28/2024 Personal Safety Answer Date Recorded Getting School Help Needed Not on file 06/23 Sex and Gender Information Value Date Recorded Sex Assigned at Not on file Legal Sex Male 11:27 PM [employer] Gender Identity Male 01/08/2020 10:26 AM CDT Sexual Orientation Straight 01/08/2020 10 :26 AM CDT documented as of this encounter Plan of Treatment Not on file documented as of this encounter Goals Goal Patient Goal Type Associated Problems Recent Progress Patient-Stated? Author [facility] No change(2018 11:46 AM CDT) No Melva Diaz RN Note: Patient will establish a comfort-function goal and identify the pain level that will allow the patient to perform desired activities and achieve an acceptable quality of life. documented as of this encounter Procedures Procedure Name Priority Date/Time Associated Diagnosis Comments SCAN - RADIOLOGY/IMAGING 04/05/2024 SCAN - LABS 04/05/2024 documented in this encounter Results * SCAN - LABS (04/05/2024) Ismael AMAYA Final R esult * SCAN - RADIOLOGY/IMAGING (04/05/2024) Anatomical Region Laterality Modality Other Ismael AMAYA Edited Result - Final documented in this encounter Visit Diagnoses Not on filedocumented in this encounter Care Teams Geriatric Social Worker Relationship Specialty Start Date End Date Ismael Evans PA [address] [facility] [place] [address] PCP - General Internal Medicine 03/17/22 Kurt Paige MD [address] [place] [address] Consulting Physician Neurosurgery 04/18/23 01/07/25 Teddy Dumont MD [address] [place] [id number] Referring Physician Pain Management 03/12/24 01/07/25 Narciso Bill DPM [address] [place] [address] Consulting Physician Foot and Ankle Surg 04/25/2401/23 Narciso Bill DPM [address] [place] [address] Consulting Physician Foot and Ankle Surg 01/24/25 [facility] 04/25/24 documented as of this encounter
== END 2025-04-09 09:30 | disposition home or self-care (01) ==
PROVIDERS: PCP Physician Assistant; Visit Provider Nurse Practitioner Adult Health
DX: S32.000A Wedge compression fracture of unspecified lumbar vertebra, initial encounter for closed fracture (principal); X58.XXXA Exposure to other specified factors, initial encounter
CPT/HCPCS: 72100